=== PATIENT | female | born 1990 | race Caucasian/White ===

== ENCOUNTER 2016-11-19 20:32 | Observation (INO) | payer MEDICAID ==
[~2016-11-19] VITALS: Ht 157.5 cm; Wt 83.9 kg
[2016-11-19] MEDS ORDERED: PREN-88 PO (21:17)
== END 2016-11-19 21:20 | disposition home or self-care (01) ==
LOC: L&D 20:32 → INTOOBSV 20:32
PROVIDERS: ADMIT Specialist; ATTEND Specialist
DX: O26.893 Other specified pregnancy related conditions, third trimester (principal); R10.9 Unspecified abdominal pain; Z3A.28 28 weeks gestation of pregnancy
CPT/HCPCS: 82962; 99281; G0378

== ENCOUNTER 2018-04-09 21:57 | Emergency (ER) | payer MEDICAID ==
[~2018-04-09] VITALS: Ht 157.5 cm; Wt 68.0 kg
[~2018-04-09 21:57] MED LIST: PREN-88 PO
[2018-04-09 22:15] VITALS: BP 131/87
== END 2018-04-09 22:36 | disposition left against medical advice (07) ==
LOC: ER 21:57
DX: F10.129 Alcohol abuse with intoxication, unspecified (principal); Z53.21 Procedure and treatment not carried out due to patient leaving prior to being seen by health care provider

== ENCOUNTER 2018-04-13 15:31 | Emergency (ER) | payer MEDICAID ==
[~2018-04-13] VITALS: Ht 157.5 cm; Wt 73.0 kg
[2018-04-13] MEDS ORDERED: LORAZEPAM 1MG TABLET PO ONE (23:00)
[2018-04-13 23:10] VITALS: BP 130/83
== END 2018-04-13 23:46 | disposition home or self-care (01) ==
LOC: ER 15:31
DX: F41.9 Anxiety disorder, unspecified (principal); F15.10 Other stimulant abuse, uncomplicated; E11.9 Type 2 diabetes mellitus without complications; R00.0 Tachycardia, unspecified; Z88.5 Allergy status to narcotic agent; Z88.3 Allergy status to other anti-infective agents; Z91.041 Radiographic dye allergy status
CPT/HCPCS: 82962; 93005; 99284; Z7610; 99283

== ENCOUNTER 2018-05-05 19:37 | Emergency (ER) | payer MEDICAID ==
[~2018-05-05] VITALS: Ht 157.5 cm; Wt 73.0 kg
[2018-05-05] MEDS ORDERED: LORAZEPAM 2MG/ML CPJ IM STA (20:04)
[2018-05-05] MEDS ORDERED: SODIUM CHLORIDE 0.9% 1,000 ML IV ONE (20:04)
[2018-05-05] MEDS ORDERED: OLANZAPINE 10 MG/VIAL IM ONE (20:15)
[2018-05-06 00:35] VITALS: BP 87/47
== END 2018-05-06 02:34 | disposition home or self-care (01) ==
LOC: ER 19:37
DX: F15.10 Other stimulant abuse, uncomplicated (principal); E11.9 Type 2 diabetes mellitus without complications; Z88.5 Allergy status to narcotic agent; Z88.3 Allergy status to other anti-infective agents; Z91.041 Radiographic dye allergy status
CPT/HCPCS: 82962; 96360; 96372; 99283; J2060; J3490; J7030

== ENCOUNTER 2018-05-06 17:42 | Emergency (ER) | payer MEDICAID ==
[~2018-05-06] VITALS: Ht 162.6 cm; Wt 70.0 kg
[2018-05-06] MEDS ORDERED: SODIUM CHLORIDE 0.9% 1,000 ML IV ONE (18:07)
[2018-05-06] MEDS ORDERED: LORAZEPAM 2MG/ML CPJ IV ONE (18:15)
[2018-05-06 18:47] LABS: BASOPHILS % 0.6 % (0.0-2.0); EOSINOPHILS % 3.9 % (0.0-5.0); HEMATOCRIT. 40.6 % (36.0-48.0); HEMOGLOBIN. 13.5 g/dL (12.0-16.0); LYMPHOCYTES % 31.5 % (20.0-50.0); MEAN CORPUSCULAR HEMOGLOBIN 32.6 pg (28.0-32.0); MEAN CORPUSCULAR VOLUME 98.1 fL (81.0-99.0); MEAN PLATELET VOLUME 9.5 fl (7.4-10.4); MONOCYTES % 5.4 % (2.0-8.0); NEUTROPHILS % 58.6 % (40.0-76.0); PLATELET 295 x1000/uL (130-400); RED BLOOD CELL COUNT 4.14 mill/uL (4.2-5.4); RED CELL DISTRIBUTION WIDTH 13.6 % (11.6-14.6)
[2018-05-06 18:57] LABS: CHLORIDE 102 mEq/L (98-107)
[2018-05-06 19:06] LABS: ETHANOL BLOOD < 10 mg/dL
[2018-05-06] MEDS ORDERED: SODIUM CHLORIDE 0.9% 500 ML IV ONE (19:58)
[2018-05-06 20:33] LABS: CLARITY URINE CLOUDY (CLEAR); COLOR URINE YELLOW (YELLOW); KETONES URINE 4+ (NEGATIVE); LEUKOCYTE ESTERASE URINE NEGATIVE (NEGATIVE); NITRITE URINE NEGATIVE (NEGATIVE); OCCULT BLOOD URINE NEGATIVE (NEGATIVE); PH URINE 5.5 (4.5-8.0); PROTEIN URINE 1+ (NEGATIVE); SPECIFIC GRAVITY URINE 1.037 (1.005-1.030); UROBILINOGEN URINE 0.2 E.U./dL (0.2-1.0)
[2018-05-06 20:48] LABS: *BARBITURATES SCREEN URINE NEGATIVE (NEGATIVE); *BENZODIAZEPINES SCREEN URINE NEGATIVE (NEGATIVE)
[2018-05-06 20:49] LABS: *COCAINE SCREEN URINE NEGATIVE (NEGATIVE); CANNABINOID URINE SCREEN NEGATIVE (NEGATIVE); METHADONE URINE SCREEN NEGATIVE (NEGATIVE); OPIATES URINE SCREEN NEGATIVE (NEGATIVE); PHENCYCLIDINE URINE SCREEN NEGATIVE (NEGATIVE)
[2018-05-06 20:53] LABS: *AMPHETAMINES SCREEN URINE PRESUMTIVE POSITIVE (NEGATIVE)
[2018-05-06 21:48] VITALS: BP 103/61
== END 2018-05-06 21:52 | disposition home or self-care (01) ==
LOC: ER 17:42
DX: E11.65 Type 2 diabetes mellitus with hyperglycemia (principal); F15.10 Other stimulant abuse, uncomplicated; F16.10 Hallucinogen abuse, uncomplicated; E86.0 Dehydration; Z91.041 Radiographic dye allergy status; Z79.4 Long term (current) use of insulin; Z88.5 Allergy status to narcotic agent; Z88.3 Allergy status to other anti-infective agents
CPT/HCPCS: 36415; 80053; 80305; 81003; 81025; 82962; 85025; 87186; 96361; 96374; 99283; J2060; J7030; J7040

== ENCOUNTER 2018-05-12 23:06 | Emergency (ER) | payer MEDICAID ==
[~2018-05-12] VITALS: Ht 170.2 cm; Wt 75.0 kg
[2018-05-13] MEDS ORDERED: QUETIAPINE FUMARATE 25MG TABLET PO SCH (02:00)
[2018-05-13] MEDS ORDERED: SODIUM CHLORIDE 0.9% 1,000 ML IV ONE ×2 (02:45→03:15)
[2018-05-13 03:02] LABS: BASOPHILS % 0.4 % (0.0-2.0); EOSINOPHILS % 0.1 % (0.0-5.0); HEMATOCRIT. 38.2 % (36.0-48.0); HEMOGLOBIN. 12.5 g/dL (12.0-16.0); LYMPHOCYTES % 28.6 % (20.0-50.0); MEAN CORPUSCULAR HEMOGLOBIN 32.3 pg (28.0-32.0); MEAN CORPUSCULAR VOLUME 98.8 fL (81.0-99.0); MEAN PLATELET VOLUME 9.2 fl (7.4-10.4); MONOCYTES % 6.3 % (2.0-8.0); NEUTROPHILS % 64.6 % (40.0-76.0); PLATELET 328 x1000/uL (130-400); RED BLOOD CELL COUNT 3.87 mill/uL (4.2-5.4); RED CELL DISTRIBUTION WIDTH 13.6 % (11.6-14.6)
[2018-05-13 03:03] LABS: CHLORIDE 96 mEq/L (98-107)
[2018-05-13 03:04] LABS: HCG SCREEN NEGATIVE
[2018-05-13 03:09] LABS: ETHANOL BLOOD < 10 mg/dL
[2018-05-13 03:15] LABS: CLARITY URINE CLEAR (CLEAR); COLOR URINE YELLOW (YELLOW); KETONES URINE 2+ (NEGATIVE); LEUKOCYTE ESTERASE URINE NEGATIVE (NEGATIVE); NITRITE URINE NEGATIVE (NEGATIVE); OCCULT BLOOD URINE TRACE (NEGATIVE); PROTEIN URINE 1+ (NEGATIVE); SPECIFIC GRAVITY URINE 1.033 (1.005-1.030); UROBILINOGEN URINE 0.2 E.U./dL (0.2-1.0)
[2018-05-13 03:41] LABS: *BARBITURATES SCREEN URINE NEGATIVE (NEGATIVE); *BENZODIAZEPINES SCREEN URINE NEGATIVE (NEGATIVE); *COCAINE SCREEN URINE NEGATIVE (NEGATIVE); METHADONE URINE SCREEN NEGATIVE (NEGATIVE); OPIATES URINE SCREEN NEGATIVE (NEGATIVE)
[2018-05-13 03:42] LABS: *AMPHETAMINES SCREEN URINE PRESUMTIVE POSITIVE (NEGATIVE); CANNABINOID URINE SCREEN NEGATIVE (NEGATIVE); PHENCYCLIDINE URINE SCREEN NEGATIVE (NEGATIVE)
[2018-05-13] MEDS ORDERED: LORAZEPAM 1MG TABLET PO ONE (03:45)
[2018-05-13] MEDS ORDERED: INSULIN REGULAR (HUMULIN R) 300UNITS/3ML SUBCUT ONE (04:15)
[2018-05-13 06:53] VITALS: BP 128/79
== END 2018-05-13 06:54 | disposition home or self-care (01) ==
LOC: ER 23:06
DX: F15.10 Other stimulant abuse, uncomplicated (principal); E11.65 Type 2 diabetes mellitus with hyperglycemia; F41.9 Anxiety disorder, unspecified; F20.9 Schizophrenia, unspecified; Z88.3 Allergy status to other anti-infective agents; Z91.041 Radiographic dye allergy status
CPT/HCPCS: 36415; 80048; 80305; 80307; 80329; 81003; 81025; 82962; 84703; 85025; 93005; 96361; 96372; 99284; J1815; J7030

== ENCOUNTER 2018-06-14 00:54 | Emergency (ER) | payer MEDICAID ==
[~2018-06-14] VITALS: Ht 154.9 cm; Wt 63.0 kg
[2018-06-14] MEDS ORDERED: LORAZEPAM 1MG TABLET PO ONE (06:45)
[2018-06-14] MEDS ORDERED: SODIUM CHLORIDE 0.9% 1,000 ML IV ONE (06:45)
[2018-06-14 07:06] LABS: BASOPHILS % 0.6 % (0.0-2.0); EOSINOPHILS % 2.9 % (0.0-5.0); HEMATOCRIT. 36.7 % (36.0-48.0); HEMOGLOBIN. 12.4 g/dL (12.0-16.0); LYMPHOCYTES % 31.7 % (20.0-50.0); MEAN CORPUSCULAR HEMOGLOBIN 32.2 pg (28.0-32.0); MEAN CORPUSCULAR VOLUME 95.5 fL (81.0-99.0); MEAN PLATELET VOLUME 8.9 fl (7.4-10.4); MONOCYTES % 5.4 % (2.0-8.0); NEUTROPHILS % 59.4 % (40.0-76.0); PLATELET 304 x1000/uL (130-400); RED BLOOD CELL COUNT 3.84 mill/uL (4.2-5.4); RED CELL DISTRIBUTION WIDTH 13.4 % (11.6-14.6)
[2018-06-14 07:08] LABS: CHLORIDE 104 mEq/L (98-107)
[2018-06-14 07:12] LABS: ETHANOL BLOOD < 10 mg/dL
[2018-06-14 07:17] LABS: HCG SCREEN NEGATIVE
[2018-06-14 08:09] LABS: CLARITY URINE CLEAR (CLEAR); COLOR URINE YELLOW (YELLOW); KETONES URINE NEGATIVE (NEGATIVE); LEUKOCYTE ESTERASE URINE NEGATIVE (NEGATIVE); NITRITE URINE NEGATIVE (NEGATIVE); OCCULT BLOOD URINE NEGATIVE (NEGATIVE); PROTEIN URINE NEGATIVE (NEGATIVE); SPECIFIC GRAVITY URINE 1.038 (1.005-1.030); UROBILINOGEN URINE 0.2 E.U./dL (0.2-1.0)
[2018-06-14] MEDS ORDERED: INSULIN LISPRO 100 UNITS/ML SUBCUT ONE (08:15)
[2018-06-14 08:30] LABS: *BARBITURATES SCREEN URINE NEGATIVE (NEGATIVE); *BENZODIAZEPINES SCREEN URINE NEGATIVE (NEGATIVE)
[2018-06-14 08:31] LABS: *AMPHETAMINES SCREEN URINE PRESUMTIVE POSITIVE (NEGATIVE); *COCAINE SCREEN URINE NEGATIVE (NEGATIVE); CANNABINOID URINE SCREEN NEGATIVE (NEGATIVE); METHADONE URINE SCREEN NEGATIVE (NEGATIVE); OPIATES URINE SCREEN NEGATIVE (NEGATIVE); PHENCYCLIDINE URINE SCREEN NEGATIVE (NEGATIVE)
[2018-06-14 09:50] VITALS: BP 118/86
== END 2018-06-14 09:59 | disposition home or self-care (01) ==
LOC: ER 00:54
DX: F41.9 Anxiety disorder, unspecified (principal); E11.65 Type 2 diabetes mellitus with hyperglycemia; F15.10 Other stimulant abuse, uncomplicated; Z60.2 Problems related to living alone; Z88.5 Allergy status to narcotic agent; Z88.3 Allergy status to other anti-infective agents; Z91.041 Radiographic dye allergy status
CPT/HCPCS: 36415; 80053; 80305; 80307; 80320; 80329; 81003; 81025; 82962; 84703; 85025; 96372; 99284; J1815; J7030; G0480

== ENCOUNTER 2018-06-28 19:14 | Emergency (ER) | payer MEDICAID ==
[~2018-06-28] VITALS: Ht 162.6 cm; Wt 73.0 kg
[2018-06-28] MEDS ORDERED: SODIUM CHLORIDE 0.9% 1,000 ML IV ONE (19:54)
[2018-06-28] MEDS ORDERED: LORAZEPAM 2MG/ML CPJ IM PRN (20:00)
[2018-06-28] MEDS ORDERED: HALOPERIDOL LACTATE 5MG/ML VIAL IM ONE (20:00)
[2018-06-28 20:45] LABS: CLARITY URINE CLEAR (CLEAR); COLOR URINE YELLOW (YELLOW); KETONES URINE NEGATIVE (NEGATIVE); LEUKOCYTE ESTERASE URINE NEGATIVE (NEGATIVE); NITRITE URINE NEGATIVE (NEGATIVE); OCCULT BLOOD URINE NEGATIVE (NEGATIVE); PROTEIN URINE NEGATIVE (NEGATIVE); SPECIFIC GRAVITY URINE 1.007 (1.005-1.030); UROBILINOGEN URINE 0.2 E.U./dL (0.2-1.0)
[2018-06-28 20:56] LABS: BASOPHILS % 0.7 % (0.0-2.0); EOSINOPHILS % 2.4 % (0.0-5.0); HEMATOCRIT. 34.9 % (36.0-48.0); HEMOGLOBIN. 11.9 g/dL (12.0-16.0); LYMPHOCYTES % 36.7 % (20.0-50.0); MEAN CORPUSCULAR VOLUME 93.9 fL (81.0-99.0); MEAN PLATELET VOLUME 8.7 fl (7.4-10.4); MONOCYTES % 5.8 % (2.0-8.0); NEUTROPHILS % 54.4 % (40.0-76.0); PLATELET 314 x1000/uL (130-400); RED BLOOD CELL COUNT 3.72 mill/uL (4.2-5.4); RED CELL DISTRIBUTION WIDTH 13.7 % (11.6-14.6)
[2018-06-28 20:57] LABS: *BARBITURATES SCREEN URINE NEGATIVE (NEGATIVE); *BENZODIAZEPINES SCREEN URINE NEGATIVE (NEGATIVE); *COCAINE SCREEN URINE NEGATIVE (NEGATIVE); CANNABINOID URINE SCREEN NEGATIVE (NEGATIVE); METHADONE URINE SCREEN NEGATIVE (NEGATIVE); OPIATES URINE SCREEN NEGATIVE (NEGATIVE); PHENCYCLIDINE URINE SCREEN NEGATIVE (NEGATIVE)
[2018-06-28 21:03] LABS: CHLORIDE 103 mEq/L (98-107)
[2018-06-28 21:08] LABS: ETHANOL BLOOD < 10 mg/dL
[2018-06-28 21:08] LABS: *AMPHETAMINES SCREEN URINE PRESUMTIVE POSITIVE (NEGATIVE)
[2018-06-28 21:17] LABS: HCG SCREEN NEGATIVE
[2018-06-29 02:20] VITALS: BP 90/51
== END 2018-06-29 03:56 | disposition home or self-care (01) ==
LOC: ER 19:14
DX: F23 Brief psychotic disorder (principal); F15.229 Other stimulant dependence with intoxication, unspecified; F41.9 Anxiety disorder, unspecified; E11.9 Type 2 diabetes mellitus without complications; E03.9 Hypothyroidism, unspecified; Z88.5 Allergy status to narcotic agent; Z88.3 Allergy status to other anti-infective agents; Z91.041 Radiographic dye allergy status; Z98.890 Other specified postprocedural states
CPT/HCPCS: 36415; 70450; 71045; 80053; 80305; 80307; 80320; 80329; 81003; 81025; 82962; 84443; 84703; 85025; 93005; 96372; 99284; J1630; J2060; J7030; Z7610; G0480

== ENCOUNTER 2018-07-11 05:51 | Emergency (ER) | payer MEDICAID ==
[~2018-07-11] VITALS: Ht 157.5 cm; Wt 67.0 kg
[2018-07-11] MEDS ORDERED: LORAZEPAM 2MG/ML CPJ IM ONE (06:30)
[2018-07-11 07:59] VITALS: BP 121/91
== END 2018-07-11 07:59 | disposition home or self-care (01) ==
LOC: ER 05:51
DX: F41.9 Anxiety disorder, unspecified (principal); E11.9 Type 2 diabetes mellitus without complications; F15.10 Other stimulant abuse, uncomplicated; Z98.890 Other specified postprocedural states; Z88.8 Allergy status to other drugs, medicaments and biological substances; Z91.041 Radiographic dye allergy status; Z88.1 Allergy status to other antibiotic agents
CPT/HCPCS: 81025; 93005; 96372; 99284; J2060; Z7610

== ENCOUNTER 2018-08-29 01:56 | Emergency (ER) | payer MEDICAID ==
[~2018-08-29] VITALS: Ht 162.6 cm; Wt 59.0 kg
[2018-08-29] MEDS ORDERED: LORAZEPAM 1MG TABLET PO ONE (05:45)
[2018-08-29] MEDS ORDERED: SODIUM CHLORIDE 0.9% 1,000 ML IV ONE (07:51)
[2018-08-29] MEDS ORDERED: ASPIRIN 81MG TABLET PO ONE (08:00)
[2018-08-29 08:39] LABS: BASOPHILS % 0.8 % (0.0-2.0); EOSINOPHILS % 0.9 % (0.0-5.0); HEMATOCRIT. 40.1 % (36.0-48.0); HEMOGLOBIN. 13.4 g/dL (12.0-16.0); LYMPHOCYTES % 25.9 % (20.0-50.0); MEAN CORPUSCULAR VOLUME 92.5 fL (81.0-99.0); MONOCYTES % 5.6 % (2.0-8.0); NEUTROPHILS % 66.8 % (40.0-76.0); PLATELET 367 x1000/uL (130-400); RED BLOOD CELL COUNT 4.34 mill/uL (4.2-5.4); RED CELL DISTRIBUTION WIDTH 14.2 % (11.6-14.6)
[2018-08-29 08:43] LABS: CHLORIDE 92 mEq/L (98-107)
[2018-08-29 08:44] LABS: PROTHROMBIN TIME 9.8 sec (9.6-11.0)
[2018-08-29] MEDS ORDERED: LORAZEPAM 2MG/ML CPJ IV ONE (08:45)
[2018-08-29 08:49] LABS: ETHANOL BLOOD < 10 mg/dL
[2018-08-29 08:55] LABS: HCG SCREEN NEGATIVE
[2018-08-29] MEDS ORDERED: INSULIN REGULAR (HUMULIN R) 300UNITS/3ML IV NR (11:15)
[2018-08-29 11:23] VITALS: BP 114/69
[2018-08-29 12:34] LABS: *BENZODIAZEPINES SCREEN URINE NEGATIVE (NEGATIVE)
[2018-08-29 12:35] LABS: *COCAINE SCREEN URINE NEGATIVE (NEGATIVE); CANNABINOID URINE SCREEN NEGATIVE (NEGATIVE); METHADONE URINE SCREEN NEGATIVE (NEGATIVE); OPIATES URINE SCREEN NEGATIVE (NEGATIVE); PHENCYCLIDINE URINE SCREEN NEGATIVE (NEGATIVE)
[2018-08-29 12:37] LABS: *BARBITURATES SCREEN URINE NEGATIVE (NEGATIVE)
[2018-08-29 12:38] LABS: *AMPHETAMINES SCREEN URINE PRESUMTIVE POSITIVE (NEGATIVE)
== END 2018-08-29 12:42 | disposition home or self-care (01) ==
LOC: ER 01:56
DX: F41.9 Anxiety disorder, unspecified (principal); E11.65 Type 2 diabetes mellitus with hyperglycemia; F15.10 Other stimulant abuse, uncomplicated; F17.200 Nicotine dependence, unspecified, uncomplicated; Z98.890 Other specified postprocedural states; Z88.1 Allergy status to other antibiotic agents; Z88.5 Allergy status to narcotic agent; Z91.041 Radiographic dye allergy status
CPT/HCPCS: 36415; 71045; 80053; 80305; 80320; 81025; 82962; 83690; 83880; 84484; 84703; 85025; 85610; 93005; 96361; 96374; 96375; 99284; J1815; J2060; J7030; G0480

== ENCOUNTER 2018-08-29 22:41 | Emergency (ER) | payer MEDICAID ==
[~2018-08-29] VITALS: Ht 154.9 cm; Wt 59.0 kg
[2018-08-29 23:55] VITALS: BP 139/74
== END 2018-08-30 00:05 | disposition left against medical advice (07) ==
LOC: ER 22:41
DX: Z53.21 Procedure and treatment not carried out due to patient leaving prior to being seen by health care provider (principal)
CPT/HCPCS: 93005

== ENCOUNTER 2018-09-12 02:29 | Emergency (ER) | payer MEDICAID ==
[~2018-09-12] VITALS: Ht 167.6 cm; Wt 60.0 kg
[2018-09-12] MEDS ORDERED: SODIUM CHLORIDE 0.9% 1,000 ML IV ONE (04:39)
[2018-09-12] MEDS ORDERED: ACETAMINOPHEN 325MG TABLET PO STA (04:39)
[2018-09-12] MEDS ORDERED: LORAZEPAM 2MG/ML CPJ IV ONE (04:45)
[2018-09-12 04:58] LABS: BASOPHILS % 0.5 % (0.0-2.0); EOSINOPHILS % 3.1 % (0.0-5.0); HEMATOCRIT. 33.6 % (36.0-48.0); HEMOGLOBIN. 11.3 g/dL (12.0-16.0); LYMPHOCYTES % 32.4 % (20.0-50.0); MEAN CORPUSCULAR HEMOGLOBIN 30.3 pg (28.0-32.0); MEAN CORPUSCULAR VOLUME 90.5 fL (81.0-99.0); MEAN PLATELET VOLUME 7.9 fl (7.4-10.4); MONOCYTES % 7.6 % (2.0-8.0); NEUTROPHILS % 56.4 % (40.0-76.0); PLATELET 345 x1000/uL (130-400); RED BLOOD CELL COUNT 3.72 mill/uL (4.2-5.4); RED CELL DISTRIBUTION WIDTH 14.6 % (11.6-14.6)
[2018-09-12 05:05] LABS: CHLORIDE 109 mEq/L (98-107)
[2018-09-12 05:08] LABS: ETHANOL BLOOD < 10 mg/dL
[2018-09-12 07:54] LABS: CLARITY URINE CLOUDY (CLEAR); COLOR URINE YELLOW (YELLOW); KETONES URINE 1+ (NEGATIVE); LEUKOCYTE ESTERASE URINE 1+ (NEGATIVE); NITRITE URINE NEGATIVE (NEGATIVE); OCCULT BLOOD URINE NEGATIVE (NEGATIVE); PH URINE 5.5 (4.5-8.0); PROTEIN URINE 3+ (NEGATIVE); SPECIFIC GRAVITY URINE 1.035 (1.005-1.030)
[2018-09-12 08:21] LABS: *COCAINE SCREEN URINE NEGATIVE (NEGATIVE); METHADONE URINE SCREEN NEGATIVE (NEGATIVE); OPIATES URINE SCREEN NEGATIVE (NEGATIVE); PHENCYCLIDINE URINE SCREEN NEGATIVE (NEGATIVE)
[2018-09-12 08:22] LABS: *BARBITURATES SCREEN URINE NEGATIVE (NEGATIVE); *BENZODIAZEPINES SCREEN URINE NEGATIVE (NEGATIVE); CANNABINOID URINE SCREEN NEGATIVE (NEGATIVE)
[2018-09-12 08:23] LABS: *AMPHETAMINES SCREEN URINE PRESUMTIVE POSITIVE (NEGATIVE)
[2018-09-12 13:22] VITALS: BP 103/72
== END 2018-09-12 14:04 | disposition home or self-care (01) ==
LOC: ER 02:29
DX: R07.9 Chest pain, unspecified (principal); F15.10 Other stimulant abuse, uncomplicated; R45.851 Suicidal ideations; F41.9 Anxiety disorder, unspecified; E11.9 Type 2 diabetes mellitus without complications; Z88.8 Allergy status to other drugs, medicaments and biological substances; Z88.5 Allergy status to narcotic agent; Z88.1 Allergy status to other antibiotic agents; Z79.899 Other long term (current) drug therapy; Z98.890 Other specified postprocedural states
CPT/HCPCS: 36415; 71045; 80053; 80305; 80320; 81003; 84484; 85025; 93005; 96374; 99284; J2060; J7030; Z7610; G0480

== ENCOUNTER 2018-09-29 13:55 | Emergency (ER) | payer MEDICAID ==
[~2018-09-29] VITALS: Ht 157.5 cm; Wt 66.0 kg
[2018-09-29 19:12] LABS: BASOPHILS % 0.7 % (0.0-2.0); EOSINOPHILS % 2.2 % (0.0-5.0); HEMATOCRIT. 34.7 % (36.0-48.0); HEMOGLOBIN. 11.5 g/dL (12.0-16.0); LYMPHOCYTES % 39.5 % (20.0-50.0); MEAN CORPUSCULAR HEMOGLOBIN 29.6 pg (28.0-32.0); MEAN CORPUSCULAR VOLUME 89.2 fL (81.0-99.0); MEAN PLATELET VOLUME 8.1 fl (7.4-10.4); NEUTROPHILS % 50.6 % (40.0-76.0); PLATELET 370 x1000/uL (130-400); RED BLOOD CELL COUNT 3.89 mill/uL (4.2-5.4); RED CELL DISTRIBUTION WIDTH 15.2 % (11.6-14.6)
[2018-09-29 19:17] LABS: CHLORIDE 100 mEq/L (98-107)
[2018-09-29 19:21] LABS: ETHANOL BLOOD < 10 mg/dL
[2018-09-29 20:10] LABS: *BARBITURATES SCREEN URINE NEGATIVE (NEGATIVE); *BENZODIAZEPINES SCREEN URINE NEGATIVE (NEGATIVE); *COCAINE SCREEN URINE NEGATIVE (NEGATIVE); CANNABINOID URINE SCREEN NEGATIVE (NEGATIVE); METHADONE URINE SCREEN NEGATIVE (NEGATIVE); OPIATES URINE SCREEN NEGATIVE (NEGATIVE); PHENCYCLIDINE URINE SCREEN NEGATIVE (NEGATIVE)
[2018-09-29 20:47] LABS: *AMPHETAMINES SCREEN URINE PRESUMTIVE POSITIVE (NEGATIVE)
[2018-09-29] MEDS ORDERED: DEXTROSE 10% WATER 500 ML IV ONE (21:00)
[2018-09-29] MEDS ORDERED: SODIUM CHLORIDE 0.9% 1,000 ML IV ONE (21:00)
[2018-09-29] MEDS ORDERED: DEXTROSE 50% WATER 50ML SYRINGE IV ONE (21:00)
[2018-09-29] MEDS ORDERED: LORAZEPAM 2MG/ML CPJ IV NR (21:00)
[2018-09-29] MEDS ORDERED: SODIUM CHLORIDE 0.9% 1,000 ML IV NR (22:30)
[2018-09-29] MEDS ORDERED: INSULIN REGULAR (HUMULIN R) 300UNITS/3ML IV NR (22:30)
[2018-09-30] MEDS ORDERED: INSULIN REGULAR (HUMULIN R) UD 100 UNITS/ML SYR IV ONE ×2 (01:15→03:15)
[2018-09-30] MEDS ORDERED: SODIUM CHLORIDE 0.9% 1,000 ML IV ONE (01:15)
[2018-09-30] MEDS ORDERED: INSULIN REGULAR (HUMULIN R) 300UNITS/3ML IV NR ×3 (02:15→03:45)
[2018-09-30 04:47] VITALS: BP 107/82
== END 2018-09-30 05:22 | disposition home or self-care (01) ==
LOC: ER 13:55
DX: F19.10 Other psychoactive substance abuse, uncomplicated (principal); E11.65 Type 2 diabetes mellitus with hyperglycemia; F41.9 Anxiety disorder, unspecified; Z98.890 Other specified postprocedural states; F15.10 Other stimulant abuse, uncomplicated; Z88.2 Allergy status to sulfonamides; Z91.041 Radiographic dye allergy status; Z88.6 Allergy status to analgesic agent; Z88.1 Allergy status to other antibiotic agents
CPT/HCPCS: 36415; 71045; 80048; 80305; 80307; 80320; 80329; 81025; 82962; 85025; 96361; 96374; 96375; 96376; 99291; J1815; J2060; J7030; Z7610; G0480

== ENCOUNTER 2018-09-30 14:46 | Emergency (ER) | payer MEDICAID ==
[~2018-09-30] VITALS: Ht 162.6 cm; Wt 63.0 kg
[2018-09-30 14:49] VITALS: BP 180/100
[2018-09-30] MEDS ORDERED: LORAZEPAM 2MG/ML CPJ IM STA (16:07)
[2018-09-30] MEDS ORDERED: HALOPERIDOL LACTATE 5MG/ML VIAL IM STA (16:07)
[2018-09-30] MEDS ORDERED: SODIUM CHLORIDE 0.9% 1,000 ML IV ONE (16:15)
[2018-09-30 16:57] LABS: BASOPHILS % 0.6 % (0.0-2.0); EOSINOPHILS % 4.6 % (0.0-5.0); HEMATOCRIT. 32.3 % (36.0-48.0); HEMOGLOBIN. 10.8 g/dL (12.0-16.0); LYMPHOCYTES % 40.4 % (20.0-50.0); MEAN CORPUSCULAR HEMOGLOBIN 30.2 pg (28.0-32.0); MEAN CORPUSCULAR VOLUME 89.9 fL (81.0-99.0); MEAN PLATELET VOLUME 8.3 fl (7.4-10.4); MONOCYTES % 4.9 % (2.0-8.0); NEUTROPHILS % 49.5 % (40.0-76.0); PLATELET 343 x1000/uL (130-400); RED BLOOD CELL COUNT 3.59 mill/uL (4.2-5.4); RED CELL DISTRIBUTION WIDTH 15.3 % (11.6-14.6)
[2018-09-30 16:58] LABS: CHLORIDE 106 mEq/L (98-107)
[2018-09-30 17:03] LABS: ETHANOL BLOOD < 10 mg/dL
[2018-09-30 17:12] LABS: HCG SCREEN NEGATIVE
[2018-09-30] MEDS ORDERED: DIPHENHYDRAMINE 25MG CAPSULE PO ONE (17:30)
[2018-09-30 17:55] LABS: CLARITY URINE CLOUDY (CLEAR); COLOR URINE YELLOW (YELLOW); KETONES URINE 2+ (NEGATIVE); LEUKOCYTE ESTERASE URINE 2+ (NEGATIVE); NITRITE URINE NEGATIVE (NEGATIVE); OCCULT BLOOD URINE TRACE (NEGATIVE); PH URINE 5.5 (4.5-8.0); PROTEIN URINE TRACE (NEGATIVE); SPECIFIC GRAVITY URINE 1.032 (1.005-1.030); UROBILINOGEN URINE 0.2 E.U./dL (0.2-1.0)
[2018-09-30 18:01] LABS: *BARBITURATES SCREEN URINE NEGATIVE (NEGATIVE); *COCAINE SCREEN URINE NEGATIVE (NEGATIVE)
[2018-09-30 18:02] LABS: *BENZODIAZEPINES SCREEN URINE NEGATIVE (NEGATIVE); CANNABINOID URINE SCREEN NEGATIVE (NEGATIVE); METHADONE URINE SCREEN NEGATIVE (NEGATIVE); OPIATES URINE SCREEN NEGATIVE (NEGATIVE); PHENCYCLIDINE URINE SCREEN NEGATIVE (NEGATIVE)
[2018-09-30 18:15] LABS: *AMPHETAMINES SCREEN URINE PRESUMTIVE POSITIVE (NEGATIVE)
[2018-09-30] MEDS ORDERED: INSULIN REGULAR (HUMULIN R) 300UNITS/3ML SUBCUT ONE (18:45)
== END 2018-09-30 19:20 | disposition home or self-care (01) ==
LOC: ER 14:49
DX: T43.621A Poisoning by amphetamines, accidental (unintentional), initial encounter (principal); Y92.89 Other specified places as the place of occurrence of the external cause; E11.65 Type 2 diabetes mellitus with hyperglycemia; N30.90 Cystitis, unspecified without hematuria; F41.9 Anxiety disorder, unspecified; Z98.890 Other specified postprocedural states; Z88.2 Allergy status to sulfonamides; Z91.041 Radiographic dye allergy status; Z88.6 Allergy status to analgesic agent; Z88.1 Allergy status to other antibiotic agents
CPT/HCPCS: 36415; 80053; 80305; 80307; 80320; 80329; 81003; 84703; 85025; 87077; 87086; 87186; 96372; 99283; J1630; J1815; J2060; J7030; Q0163; G0480

== ENCOUNTER 2018-10-06 16:53 | Emergency (ER) | payer MEDICAID ==
[~2018-10-06] VITALS: Ht 157.5 cm; Wt 63.0 kg
[2018-10-06] MEDS ORDERED: SODIUM CHLORIDE 0.9% 1,000 ML IV ONE ×2 (17:39→18:54)
[2018-10-06] MEDS ORDERED: LORAZEPAM 2MG/ML CPJ IV ONE (17:45)
[2018-10-06] MEDS ORDERED: ONDANSETRON HCL 4MG/2ML INJ IV ONE (17:45)
[2018-10-06 18:09] LABS: BASOPHILS % 0.6 % (0.0-2.0); EOSINOPHILS % 2.7 % (0.0-5.0); HEMATOCRIT. 36.5 % (36.0-48.0); LYMPHOCYTES % 28.2 % (20.0-50.0); MEAN CORPUSCULAR HEMOGLOBIN 30.2 pg (28.0-32.0); MEAN CORPUSCULAR VOLUME 91.7 fL (81.0-99.0); MONOCYTES % 4.6 % (2.0-8.0); NEUTROPHILS % 63.9 % (40.0-76.0); PLATELET 317 x1000/uL (130-400); RED BLOOD CELL COUNT 3.98 mill/uL (4.2-5.4); RED CELL DISTRIBUTION WIDTH 15.6 % (11.6-14.6)
[2018-10-06 18:14] LABS: CHLORIDE 94 mEq/L (98-107)
[2018-10-06 18:18] LABS: ETHANOL BLOOD < 10 mg/dL
[2018-10-06 18:21] LABS: HCG SCREEN NEGATIVE
[2018-10-06] MEDS ORDERED: INSULIN REGULAR (HUMULIN R) 300UNITS/3ML IV ONE (18:45)
[2018-10-06 20:26] LABS: *BARBITURATES SCREEN URINE NEGATIVE (NEGATIVE); *BENZODIAZEPINES SCREEN URINE NEGATIVE (NEGATIVE); *COCAINE SCREEN URINE NEGATIVE (NEGATIVE); METHADONE URINE SCREEN NEGATIVE (NEGATIVE); OPIATES URINE SCREEN NEGATIVE (NEGATIVE)
[2018-10-06 20:27] LABS: CANNABINOID URINE SCREEN NEGATIVE (NEGATIVE); PHENCYCLIDINE URINE SCREEN NEGATIVE (NEGATIVE)
[2018-10-06 20:32] LABS: *AMPHETAMINES SCREEN URINE PRESUMTIVE POSITIVE (NEGATIVE)
[2018-10-06] MEDS ORDERED: DIPHENHYDRAMINE 25MG CAPSULE PO ONE (21:30)
[2018-10-06 21:38] VITALS: BP 96/70
== END 2018-10-06 21:46 | disposition left against medical advice (07) ==
LOC: ER 17:16
DX: E11.9 Type 2 diabetes mellitus without complications (principal); F15.10 Other stimulant abuse, uncomplicated; F41.9 Anxiety disorder, unspecified; Z98.890 Other specified postprocedural states; Z88.2 Allergy status to sulfonamides; Z91.041 Radiographic dye allergy status; Z88.6 Allergy status to analgesic agent; Z88.1 Allergy status to other antibiotic agents
CPT/HCPCS: 36415; 80048; 80305; 80307; 80320; 80329; 81025; 82962; 84703; 85025; 96361; 96374; 96375; 99283; J1815; J2060; J2405; J7030; Q0163; Z7610; G0480

== ENCOUNTER 2018-10-08 12:33 | Emergency (ER) | payer MEDICAID ==
[~2018-10-08] VITALS: Ht 162.6 cm; Wt 56.0 kg
[2018-10-08] MEDS ORDERED: LORAZEPAM 2MG/ML CPJ IV ONE (15:00)
[2018-10-08] MEDS ORDERED: DIPHENHYDRAMINE 50MG/ML VIAL IV ONE (15:00)
[2018-10-08 16:04] LABS: BASOPHILS % 0.8 % (0.0-2.0); HEMOGLOBIN. 12.5 g/dL (12.0-16.0); LYMPHOCYTES % 31.1 % (20.0-50.0); MEAN CORPUSCULAR HEMOGLOBIN 29.9 pg (28.0-32.0); MEAN CORPUSCULAR VOLUME 90.9 fL (81.0-99.0); MEAN PLATELET VOLUME 9.8 fl (7.4-10.4); MONOCYTES % 4.7 % (2.0-8.0); NEUTROPHILS % 59.4 % (40.0-76.0); PLATELET 337 x1000/uL (130-400); RED BLOOD CELL COUNT 4.18 mill/uL (4.2-5.4); RED CELL DISTRIBUTION WIDTH 16.1 % (11.6-14.6)
[2018-10-08 16:09] LABS: CHLORIDE 95 mEq/L (98-107)
[2018-10-08] MEDS ORDERED: SODIUM CHLORIDE 0.9% 100 ML IV ONE (16:30)
[2018-10-08] MEDS ORDERED: LORAZEPAM 2MG/ML CPJ IM PRN (16:30)
[2018-10-08] MEDS ORDERED: INSULIN REGULAR (HUMULIN R) 300UNITS/3ML SUBCUT ONE (16:30)
[2018-10-08] MEDS ORDERED: DIPHENHYDRAMINE 50MG/ML VIAL IM ONE (17:00)
[2018-10-08 18:45] VITALS: BP 109/87
== END 2018-10-08 19:15 | disposition home or self-care (01) ==
LOC: ER 12:33
DX: F41.9 Anxiety disorder, unspecified (principal); T43.625A Adverse effect of amphetamines, initial encounter; E11.65 Type 2 diabetes mellitus with hyperglycemia; Y92.89 Other specified places as the place of occurrence of the external cause; F20.9 Schizophrenia, unspecified; Z98.890 Other specified postprocedural states; Z88.1 Allergy status to other antibiotic agents; Z88.2 Allergy status to sulfonamides; Z88.5 Allergy status to narcotic agent; Z88.6 Allergy status to analgesic agent; Z88.8 Allergy status to other drugs, medicaments and biological substances; Z79.4 Long term (current) use of insulin
CPT/HCPCS: 36415; 71045; 80053; 82962; 84484; 85025; 93005; 96372; 99284; J1200; J1815; J2060; J7050

== ENCOUNTER 2018-10-11 03:40 | Emergency (ER) | payer MEDICAID ==
[~2018-10-11] VITALS: Ht 160 cm; Wt 64.0 kg
[2018-10-11 04:44] LABS: EOSINOPHILS % 2.9 % (0.0-5.0); HEMATOCRIT. 35.9 % (36.0-48.0); HEMOGLOBIN. 11.5 g/dL (12.0-16.0); LYMPHOCYTES % 33.5 % (20.0-50.0); MEAN CORPUSCULAR HEMOGLOBIN 29.6 pg (28.0-32.0); MEAN CORPUSCULAR VOLUME 92.5 fL (81.0-99.0); MEAN PLATELET VOLUME 9.4 fl (7.4-10.4); MONOCYTES % 6.1 % (2.0-8.0); NEUTROPHILS % 56.5 % (40.0-76.0); PLATELET 282 x1000/uL (130-400); RED BLOOD CELL COUNT 3.89 mill/uL (4.2-5.4); RED CELL DISTRIBUTION WIDTH 15.9 % (11.6-14.6)
[2018-10-11 04:46] LABS: CLARITY URINE CLOUDY (CLEAR); COLOR URINE YELLOW (YELLOW); KETONES URINE TRACE (NEGATIVE); LEUKOCYTE ESTERASE URINE NEGATIVE (NEGATIVE); NITRITE URINE NEGATIVE (NEGATIVE); OCCULT BLOOD URINE TRACE (NEGATIVE); PH URINE 5.5 (4.5-8.0); PROTEIN URINE NEGATIVE (NEGATIVE); SPECIFIC GRAVITY URINE 1.035 (1.005-1.030); UROBILINOGEN URINE 0.2 E.U./dL (0.2-1.0)
[2018-10-11 04:50] LABS: CHLORIDE 94 mEq/L (98-107)
[2018-10-11 04:53] LABS: HCG SCREEN NEGATIVE
[2018-10-11 04:54] LABS: ETHANOL BLOOD < 10 mg/dL
[2018-10-11] MEDS ORDERED: LORAZEPAM 2MG/ML CPJ IM ONE (05:00)
[2018-10-11 05:01] LABS: *BARBITURATES SCREEN URINE NEGATIVE (NEGATIVE); *BENZODIAZEPINES SCREEN URINE NEGATIVE (NEGATIVE); *COCAINE SCREEN URINE NEGATIVE (NEGATIVE)
[2018-10-11 05:02] LABS: CANNABINOID URINE SCREEN NEGATIVE (NEGATIVE); METHADONE URINE SCREEN NEGATIVE (NEGATIVE); OPIATES URINE SCREEN NEGATIVE (NEGATIVE); PHENCYCLIDINE URINE SCREEN NEGATIVE (NEGATIVE)
[2018-10-11 05:06] LABS: *AMPHETAMINES SCREEN URINE PRESUMTIVE POSITIVE (NEGATIVE)
[2018-10-11] MEDS ORDERED: SODIUM CHLORIDE 0.9% 1,000 ML IV ONE ×2 (05:08→09:45)
[2018-10-11] MEDS ORDERED: INSULIN REGULAR (HUMULIN R) 300UNITS/3ML SUBCUT ONE (05:45)
[2018-10-11] MEDS ORDERED: LORAZEPAM 2MG/ML CPJ IV ONE (06:00)
[2018-10-11] MEDS ORDERED: DIPHENHYDRAMINE 50MG/ML VIAL IV ONE (07:15)
[2018-10-11] MEDS ORDERED: BACITRACIN ZINC OINT UDPKT TOP ONE (11:00)
[2018-10-11 11:40] VITALS: BP 104/68
== END 2018-10-11 11:11 | disposition home or self-care (01) ==
LOC: ER 03:40
DX: F15.10 Other stimulant abuse, uncomplicated (principal); E11.65 Type 2 diabetes mellitus with hyperglycemia; F41.9 Anxiety disorder, unspecified; Z88.5 Allergy status to narcotic agent; Z88.2 Allergy status to sulfonamides; Z88.6 Allergy status to analgesic agent; Z91.041 Radiographic dye allergy status; Z91.14 Patient's other noncompliance with medication regimen
CPT/HCPCS: 36415; 80048; 80305; 80320; 81003; 82010; 82962; 84703; 85025; 96361; 96372; 96374; 96375; 99283; J1200; J1815; J2060; J7030; Z7610; G0480

== ENCOUNTER 2018-10-20 20:12 | Emergency (ER) | payer MEDICAID ==
[~2018-10-20] VITALS: Ht 157.5 cm; Wt 64.0 kg
[2018-10-20] MEDS: LORAZEPAM 2MG/ML CPJ IM PRN ×2 (21:21→22:56)
[2018-10-20 21:49] LABS: BASOPHILS % 0.7 % (0.0-2.0); EOSINOPHILS % 2.2 % (0.0-5.0); HEMOGLOBIN. 11.5 g/dL (12.0-16.0); LYMPHOCYTES % 39.1 % (20.0-50.0); MEAN CORPUSCULAR HEMOGLOBIN 29.5 pg (28.0-32.0); MEAN CORPUSCULAR VOLUME 90.2 fL (81.0-99.0); MEAN PLATELET VOLUME 8.3 fl (7.4-10.4); MONOCYTES % 4.6 % (2.0-8.0); NEUTROPHILS % 53.4 % (40.0-76.0); PLATELET 299 x1000/uL (130-400); RED BLOOD CELL COUNT 3.88 mill/uL (4.2-5.4); RED CELL DISTRIBUTION WIDTH 16.1 % (11.6-14.6)
[2018-10-20 21:52] LABS: CHLORIDE 97 mEq/L (98-107)
[2018-10-20] MEDS ORDERED: OLANZAPINE 10 MG/VIAL IM ONE (22:15)
[2018-10-21] MEDS ORDERED: INS NPH/REG HM 70-30 100 UNITS/ML 10ML VIAL (HUMULIN 70-30) SUBCUT ONE
[2018-10-21 01:36] VITALS: BP 94/59
== END 2018-10-21 01:38 | disposition home or self-care (01) ==
LOC: ER 20:12
DX: F41.9 Anxiety disorder, unspecified (principal); E11.9 Type 2 diabetes mellitus without complications; F99 Mental disorder, not otherwise specified; F17.210 Nicotine dependence, cigarettes, uncomplicated; F15.10 Other stimulant abuse, uncomplicated; Z88.2 Allergy status to sulfonamides; Z88.6 Allergy status to analgesic agent; Z88.3 Allergy status to other anti-infective agents; Z91.041 Radiographic dye allergy status; Z88.5 Allergy status to narcotic agent
CPT/HCPCS: 36415; 71045; 80053; 81025; 82962; 84484; 85025; 93005; 96372; 99284; J1815; J3490

== ENCOUNTER 2018-10-26 23:51 | Emergency (ER) | payer MEDICAID ==
[~2018-10-26] VITALS: Ht 167.6 cm; Wt 66.0 kg
[2018-10-27] MEDS ORDERED: SODIUM CHLORIDE 0.9% 1,000 ML IV ONE ×2 (00:54→02:30)
[2018-10-27] MEDS ORDERED: LORAZEPAM 2MG/ML CPJ IV ONE (01:00)
[2018-10-27 01:43] LABS: CLARITY URINE CLEAR (CLEAR); COLOR URINE YELLOW (YELLOW); KETONES URINE NEGATIVE (NEGATIVE); LEUKOCYTE ESTERASE URINE NEGATIVE (NEGATIVE); NITRITE URINE NEGATIVE (NEGATIVE); OCCULT BLOOD URINE NEGATIVE (NEGATIVE); PH URINE 5.5 (4.5-8.0); PROTEIN URINE NEGATIVE (NEGATIVE); SPECIFIC GRAVITY URINE 1.028 (1.005-1.030); UROBILINOGEN URINE 0.2 E.U./dL (0.2-1.0)
[2018-10-27 01:53] LABS: *BARBITURATES SCREEN URINE NEGATIVE (NEGATIVE); *BENZODIAZEPINES SCREEN URINE NEGATIVE (NEGATIVE)
[2018-10-27 01:54] LABS: *COCAINE SCREEN URINE NEGATIVE (NEGATIVE); CANNABINOID URINE SCREEN NEGATIVE (NEGATIVE); METHADONE URINE SCREEN NEGATIVE (NEGATIVE); OPIATES URINE SCREEN NEGATIVE (NEGATIVE); PHENCYCLIDINE URINE SCREEN NEGATIVE (NEGATIVE)
[2018-10-27 01:54] LABS: BASOPHILS % 0.3 % (0.0-2.0); EOSINOPHILS % 2.1 % (0.0-5.0); HEMATOCRIT. 31.6 % (36.0-48.0); HEMOGLOBIN. 10.2 g/dL (12.0-16.0); LYMPHOCYTES % 26.2 % (20.0-50.0); MEAN CORPUSCULAR HEMOGLOBIN 29.3 pg (28.0-32.0); MEAN CORPUSCULAR VOLUME 90.6 fL (81.0-99.0); MEAN PLATELET VOLUME 8.7 fl (7.4-10.4); MONOCYTES % 3.6 % (2.0-8.0); NEUTROPHILS % 67.8 % (40.0-76.0); PLATELET 284 x1000/uL (130-400); RED BLOOD CELL COUNT 3.48 mill/uL (4.2-5.4); RED CELL DISTRIBUTION WIDTH 15.2 % (11.6-14.6)
[2018-10-27 01:56] LABS: CHLORIDE 99 mEq/L (98-107)
[2018-10-27 02:00] LABS: ETHANOL BLOOD < 10 mg/dL
[2018-10-27 02:04] LABS: *AMPHETAMINES SCREEN URINE PRESUMTIVE POSITIVE (NEGATIVE)
[2018-10-27 05:22] VITALS: BP 112/82
== END 2018-10-27 05:30 | disposition left against medical advice (07) ==
LOC: ER 23:51
DX: E11.65 Type 2 diabetes mellitus with hyperglycemia (principal); F41.9 Anxiety disorder, unspecified; F15.10 Other stimulant abuse, uncomplicated; Z88.2 Allergy status to sulfonamides; Z88.1 Allergy status to other antibiotic agents; Z88.6 Allergy status to analgesic agent; Z91.041 Radiographic dye allergy status
CPT/HCPCS: 36415; 80053; 80305; 80320; 81003; 81025; 82962; 85025; 93005; 96361; 96374; 99284; J2060; J7030; G0480

== ENCOUNTER 2018-10-30 01:45 | Emergency (ER) | payer MEDICAID ==
[~2018-10-30] VITALS: Ht 165.1 cm; Wt 60.0 kg
[2018-10-30] MEDS ORDERED: LORAZEPAM 2MG/ML CPJ IM ONE (04:45)
[2018-10-30 06:42] VITALS: BP 119/70
== END 2018-10-30 06:42 | disposition home or self-care (01) ==
LOC: ER 01:45
DX: F41.9 Anxiety disorder, unspecified (principal); E11.9 Type 2 diabetes mellitus without complications; F20.9 Schizophrenia, unspecified; F15.10 Other stimulant abuse, uncomplicated; Z88.5 Allergy status to narcotic agent; Z88.2 Allergy status to sulfonamides; Z88.6 Allergy status to analgesic agent; Z88.3 Allergy status to other anti-infective agents; Z91.041 Radiographic dye allergy status
CPT/HCPCS: 96372; 99284; J2060

== ENCOUNTER 2018-10-31 02:36 | Emergency (ER) | payer MEDICAID ==
[~2018-10-31] VITALS: Ht 157.5 cm; Wt 54.0 kg
[2018-10-31] MEDS ORDERED: OLANZAPINE 10 MG/VIAL IM ONE (07:45)
[2018-10-31] MEDS ORDERED: DIPHENHYDRAMINE 50MG/ML VIAL IM ONE (07:45)
[2018-10-31] MEDS ORDERED: OLANZAPINE 5MG TABLET ODT PO ONE (08:00)
[2018-10-31 12:24] VITALS: BP 105/68
== END 2018-10-31 12:25 | disposition home or self-care (01) ==
LOC: ER 02:36
DX: F15.10 Other stimulant abuse, uncomplicated (principal); L29.9 Pruritus, unspecified; E11.9 Type 2 diabetes mellitus without complications; Z88.2 Allergy status to sulfonamides; Z91.041 Radiographic dye allergy status; Z88.6 Allergy status to analgesic agent; Z88.1 Allergy status to other antibiotic agents
CPT/HCPCS: 82962; 96372; 99283; J1200

== ENCOUNTER 2018-11-01 13:59 | Emergency (ER) | payer MEDICAID ==
[~2018-11-01] VITALS: Ht 162.6 cm; Wt 65.0 kg
[2018-11-01] MEDS ORDERED: LORAZEPAM 2MG/ML CPJ IV STA (14:45)
[2018-11-01] MEDS ORDERED: SODIUM CHLORIDE 0.9% 1,000 ML IV ONE (14:45)
[2018-11-01] MEDS ORDERED: LORAZEPAM 2MG/ML CPJ IM ONE (15:15)
[2018-11-01 15:30] LABS: CLARITY URINE CLOUDY (CLEAR); COLOR URINE YELLOW (YELLOW); KETONES URINE NEGATIVE (NEGATIVE); LEUKOCYTE ESTERASE URINE NEGATIVE (NEGATIVE); NITRITE URINE NEGATIVE (NEGATIVE); OCCULT BLOOD URINE 3+ (NEGATIVE); PROTEIN URINE NEGATIVE (NEGATIVE); SPECIFIC GRAVITY URINE 1.035 (1.005-1.030); UROBILINOGEN URINE 0.2 E.U./dL (0.2-1.0)
[2018-11-01 15:37] LABS: BASOPHILS % 0.9 % (0.0-2.0); HEMATOCRIT. 29.7 % (36.0-48.0); LYMPHOCYTES % 42.7 % (20.0-50.0); MEAN CORPUSCULAR HEMOGLOBIN 29.6 pg (28.0-32.0); MEAN CORPUSCULAR VOLUME 87.9 fL (81.0-99.0); MEAN PLATELET VOLUME 7.9 fl (7.4-10.4); MONOCYTES % 5.2 % (2.0-8.0); NEUTROPHILS % 47.2 % (40.0-76.0); PLATELET 351 x1000/uL (130-400); RED BLOOD CELL COUNT 3.38 mill/uL (4.2-5.4); RED CELL DISTRIBUTION WIDTH 15.6 % (11.6-14.6)
[2018-11-01 15:43] LABS: CHLORIDE 106 mEq/L (98-107)
[2018-11-01 15:49] LABS: ETHANOL BLOOD < 10 mg/dL
[2018-11-01 16:04] LABS: HCG SCREEN NEGATIVE
[2018-11-01 17:15] LABS: *BARBITURATES SCREEN URINE NEGATIVE (NEGATIVE)
[2018-11-01 17:16] LABS: *BENZODIAZEPINES SCREEN URINE NEGATIVE (NEGATIVE); *COCAINE SCREEN URINE NEGATIVE (NEGATIVE); METHADONE URINE SCREEN NEGATIVE (NEGATIVE)
[2018-11-01 17:17] LABS: CANNABINOID URINE SCREEN NEGATIVE (NEGATIVE); OPIATES URINE SCREEN NEGATIVE (NEGATIVE); PHENCYCLIDINE URINE SCREEN NEGATIVE (NEGATIVE)
[2018-11-01 17:18] LABS: *AMPHETAMINES SCREEN URINE PRESUMTIVE POSITIVE (NEGATIVE)
[2018-11-01 18:30] VITALS: BP 102/68
== END 2018-11-01 20:26 | disposition home or self-care (01) ==
LOC: ER 13:59
DX: F15.10 Other stimulant abuse, uncomplicated (principal); F16.10 Hallucinogen abuse, uncomplicated; E11.65 Type 2 diabetes mellitus with hyperglycemia; F41.9 Anxiety disorder, unspecified; D64.9 Anemia, unspecified; Z88.5 Allergy status to narcotic agent; Z88.2 Allergy status to sulfonamides; Z88.6 Allergy status to analgesic agent; Z91.041 Radiographic dye allergy status
CPT/HCPCS: 36415; 80053; 80305; 80320; 81003; 84703; 85025; 96372; 99284; J2060; J7030; G0480

== ENCOUNTER 2018-11-02 12:23 | Emergency (ER) | payer MEDICAID ==
[~2018-11-02] VITALS: Ht 165.1 cm; Wt 60.0 kg
[2018-11-02] MEDS ORDERED: SODIUM CHLORIDE 0.9% 1,000 ML IV ONE (12:42)
[2018-11-02] MEDS ORDERED: LORAZEPAM 2MG/ML CPJ IV STA (12:42)
[2018-11-02 13:15] LABS: BASOPHILS % 0.7 % (0.0-2.0); EOSINOPHILS % 2.6 % (0.0-5.0); HEMATOCRIT. 32.1 % (36.0-48.0); HEMOGLOBIN. 10.7 g/dL (12.0-16.0); LYMPHOCYTES % 39.9 % (20.0-50.0); MEAN CORPUSCULAR HEMOGLOBIN 29.5 pg (28.0-32.0); MEAN CORPUSCULAR VOLUME 88.9 fL (81.0-99.0); MEAN PLATELET VOLUME 7.8 fl (7.4-10.4); MONOCYTES % 5.5 % (2.0-8.0); NEUTROPHILS % 51.3 % (40.0-76.0); PLATELET 366 x1000/uL (130-400); RED BLOOD CELL COUNT 3.61 mill/uL (4.2-5.4); RED CELL DISTRIBUTION WIDTH 15.7 % (11.6-14.6)
[2018-11-02] MEDS ORDERED: DIPHENHYDRAMINE 50MG CAPSULE PO ONE (13:15)
[2018-11-02 13:22] LABS: CHLORIDE 104 mEq/L (98-107)
[2018-11-02 13:26] LABS: ETHANOL BLOOD < 10 mg/dL
[2018-11-02] MEDS: LORAZEPAM 2MG/ML CPJ IM PRN ×2 (13:53→14:39)
[2018-11-02 15:33] LABS: CLARITY URINE CLEAR (CLEAR); COLOR URINE YELLOW (YELLOW); KETONES URINE NEGATIVE (NEGATIVE); LEUKOCYTE ESTERASE URINE NEGATIVE (NEGATIVE); NITRITE URINE NEGATIVE (NEGATIVE); OCCULT BLOOD URINE TRACE (NEGATIVE); PROTEIN URINE NEGATIVE (NEGATIVE); SPECIFIC GRAVITY URINE 1.038 (1.005-1.030); UROBILINOGEN URINE 0.2 E.U./dL (0.2-1.0)
[2018-11-02 15:42] VITALS: BP 121/62
[2018-11-02 15:48] LABS: *BARBITURATES SCREEN URINE NEGATIVE (NEGATIVE); *BENZODIAZEPINES SCREEN URINE NEGATIVE (NEGATIVE)
[2018-11-02 15:49] LABS: *COCAINE SCREEN URINE NEGATIVE (NEGATIVE); METHADONE URINE SCREEN NEGATIVE (NEGATIVE); OPIATES URINE SCREEN NEGATIVE (NEGATIVE); PHENCYCLIDINE URINE SCREEN NEGATIVE (NEGATIVE)
[2018-11-02 15:50] LABS: *AMPHETAMINES SCREEN URINE PRESUMTIVE POSITIVE (NEGATIVE); CANNABINOID URINE SCREEN NEGATIVE (NEGATIVE)
== END 2018-11-02 15:55 | disposition home or self-care (01) ==
LOC: ER 12:23
DX: T43.621A Poisoning by amphetamines, accidental (unintentional), initial encounter (principal); F41.1 Generalized anxiety disorder; E11.65 Type 2 diabetes mellitus with hyperglycemia; Z88.5 Allergy status to narcotic agent; Z88.2 Allergy status to sulfonamides; Z88.6 Allergy status to analgesic agent; Z88.3 Allergy status to other anti-infective agents; Z91.041 Radiographic dye allergy status; Y92.018 Other place in single-family (private) house as the place of occurrence of the external cause
CPT/HCPCS: 36415; 80053; 80305; 80307; 80320; 80329; 81003; 81025; 85025; 96372; 99283; J2060; J7030; Q0163; G0480

== ENCOUNTER 2018-11-07 03:33 | Emergency (ER) | payer MEDICAID ==
[~2018-11-07] VITALS: Ht 167.6 cm; Wt 73.0 kg
[2018-11-07] MEDS ORDERED: ACETAMINOPHEN 325MG TABLET PO ONE (06:15)
[2018-11-07 06:23] LABS: *COCAINE SCREEN URINE NEGATIVE (NEGATIVE)
[2018-11-07 06:24] LABS: *BARBITURATES SCREEN URINE NEGATIVE (NEGATIVE); *BENZODIAZEPINES SCREEN URINE NEGATIVE (NEGATIVE); METHADONE URINE SCREEN NEGATIVE (NEGATIVE); PHENCYCLIDINE URINE SCREEN NEGATIVE (NEGATIVE)
[2018-11-07 06:25] LABS: CANNABINOID URINE SCREEN NEGATIVE (NEGATIVE)
[2018-11-07 06:27] LABS: OPIATES URINE SCREEN NEGATIVE (NEGATIVE)
[2018-11-07 06:28] LABS: *AMPHETAMINES SCREEN URINE PRESUMTIVE POSITIVE (NEGATIVE)
[2018-11-07 06:50] VITALS: BP 130/89
== END 2018-11-07 07:00 | disposition home or self-care (01) ==
LOC: ER 03:33
DX: F15.90 Other stimulant use, unspecified, uncomplicated (principal); R51 Headache; F41.9 Anxiety disorder, unspecified; F15.10 Other stimulant abuse, uncomplicated; F17.200 Nicotine dependence, unspecified, uncomplicated; Z88.2 Allergy status to sulfonamides; Z88.6 Allergy status to analgesic agent; Z91.041 Radiographic dye allergy status; Z88.1 Allergy status to other antibiotic agents; Z79.899 Other long term (current) drug therapy
CPT/HCPCS: 80305; 81025; 82962; 99284

== ENCOUNTER 2018-11-10 17:02 | Emergency (ER) | payer MEDICAID ==
[~2018-11-10] VITALS: Ht 160 cm; Wt 73.0 kg
[2018-11-10] MEDS ORDERED: LORAZEPAM 1MG TABLET PO ONE (18:30)
[2018-11-10] MEDS ORDERED: DIPHENHYDRAMINE 50MG/ML VIAL IM PRN (18:30)
[2018-11-10 20:49] VITALS: BP 107/68
== END 2018-11-10 20:49 | disposition home or self-care (01) ==
LOC: ER 17:02
DX: F41.9 Anxiety disorder, unspecified (principal); F15.10 Other stimulant abuse, uncomplicated; E11.9 Type 2 diabetes mellitus without complications; Z98.890 Other specified postprocedural states; Z88.2 Allergy status to sulfonamides; Z88.6 Allergy status to analgesic agent; Z91.041 Radiographic dye allergy status; Z88.1 Allergy status to other antibiotic agents
CPT/HCPCS: 93005; 99284; J1200

== ENCOUNTER 2018-11-21 09:55 | Emergency (ER) | payer MEDICAID ==
[~2018-11-21] VITALS: Ht 157.5 cm; Wt 65.0 kg
[2018-11-21] MEDS ORDERED: SODIUM CHLORIDE 0.9% 1,000 ML IV ONE (10:19)
[2018-11-21 12:39] VITALS: BP 118/86
== END 2018-11-21 12:41 | disposition home or self-care (01) ==
LOC: ER 09:55
DX: F15.10 Other stimulant abuse, uncomplicated (principal); Z76.5 Malingerer [conscious simulation]; F41.9 Anxiety disorder, unspecified; E11.9 Type 2 diabetes mellitus without complications; Z98.890 Other specified postprocedural states; Z88.2 Allergy status to sulfonamides; Z88.6 Allergy status to analgesic agent; Z91.041 Radiographic dye allergy status; Z88.1 Allergy status to other antibiotic agents
CPT/HCPCS: 82962; 99283; J7030

== ENCOUNTER 2018-11-21 23:14 | Emergency (ER) | payer MEDICAID ==
[~2018-11-21] VITALS: Ht 162.6 cm; Wt 65.0 kg
[2018-11-22] MEDS ORDERED: SODIUM CHLORIDE 0.9% 1,000 ML IV ONE (02:11)
[2018-11-22 03:22] LABS: BASOPHILS % 0.6 % (0.0-2.0); EOSINOPHILS % 2.4 % (0.0-5.0); HEMATOCRIT. 33.7 % (36.0-48.0); HEMOGLOBIN. 11.1 g/dL (12.0-16.0); LYMPHOCYTES % 41.7 % (20.0-50.0); MEAN CORPUSCULAR HEMOGLOBIN 29.1 pg (28.0-32.0); MEAN CORPUSCULAR VOLUME 88.2 fL (81.0-99.0); MEAN PLATELET VOLUME 8.4 fl (7.4-10.4); MONOCYTES % 5.5 % (2.0-8.0); NEUTROPHILS % 49.8 % (40.0-76.0); PLATELET 327 x1000/uL (130-400); RED BLOOD CELL COUNT 3.82 mill/uL (4.2-5.4); RED CELL DISTRIBUTION WIDTH 16.2 % (11.6-14.6)
[2018-11-22 03:28] LABS: CHLORIDE 104 mEq/L (98-107)
[2018-11-22 03:30] LABS: HCG SCREEN NEGATIVE
[2018-11-22 03:31] LABS: ETHANOL BLOOD < 10 mg/dL
[2018-11-22] MEDS ORDERED: LORAZEPAM 1MG TABLET PO ONE (06:45)
[2018-11-22 07:15] VITALS: BP 128/98
== END 2018-11-22 07:18 | disposition home or self-care (01) ==
LOC: ER 23:14
DX: T43.621A Poisoning by amphetamines, accidental (unintentional), initial encounter (principal); Z76.5 Malingerer [conscious simulation]; F41.9 Anxiety disorder, unspecified; F17.210 Nicotine dependence, cigarettes, uncomplicated; Z88.5 Allergy status to narcotic agent; Z88.6 Allergy status to analgesic agent; Z88.2 Allergy status to sulfonamides; Z88.3 Allergy status to other anti-infective agents; Y92.018 Other place in single-family (private) house as the place of occurrence of the external cause
CPT/HCPCS: 36415; 80053; 80320; 84703; 85025; 99283; J7030; G0480

== ENCOUNTER 2018-11-22 08:13 | Emergency (ER) | payer MEDICAID ==
[~2018-11-22] VITALS: Ht 157.5 cm; Wt 63.0 kg
[2018-11-22 08:22] VITALS: BP 125/80
== END 2018-11-22 10:34 | disposition left against medical advice (07) ==
LOC: ER 08:13
DX: Z53.21 Procedure and treatment not carried out due to patient leaving prior to being seen by health care provider (principal)

== ENCOUNTER 2018-11-24 16:03 | Emergency (ER) | payer MEDICAID ==
[~2018-11-24] VITALS: Ht 165.1 cm; Wt 59.0 kg
[2018-11-24] MEDS ORDERED: DIPHENHYDRAMINE 50MG CAPSULE PO ONE (21:45)
[2018-11-24] MEDS ORDERED: LORAZEPAM 1MG TABLET PO ONE (21:45)
[2018-11-24 21:58] LABS: BASOPHILS % 0.5 % (0.0-2.0); EOSINOPHILS % 3.8 % (0.0-5.0); HEMATOCRIT. 30.5 % (36.0-48.0); HEMOGLOBIN. 10.2 g/dL (12.0-16.0); LYMPHOCYTES % 43.3 % (20.0-50.0); MEAN CORPUSCULAR HEMOGLOBIN 29.3 pg (28.0-32.0); MEAN CORPUSCULAR VOLUME 87.5 fL (81.0-99.0); MEAN PLATELET VOLUME 7.9 fl (7.4-10.4); NEUTROPHILS % 48.4 % (40.0-76.0); PLATELET 322 x1000/uL (130-400); RED BLOOD CELL COUNT 3.49 mill/uL (4.2-5.4); RED CELL DISTRIBUTION WIDTH 16.1 % (11.6-14.6)
[2018-11-24 22:03] LABS: CHLORIDE 102 mEq/L (98-107)
[2018-11-24 22:06] LABS: ETHANOL BLOOD < 10 mg/dL
[2018-11-24 22:54] VITALS: BP 115/82
[2018-11-24 22:57] LABS: CLARITY URINE CLEAR (CLEAR); COLOR URINE YELLOW (YELLOW); KETONES URINE NEGATIVE (NEGATIVE); LEUKOCYTE ESTERASE URINE TRACE (NEGATIVE); NITRITE URINE NEGATIVE (NEGATIVE); OCCULT BLOOD URINE NEGATIVE (NEGATIVE); PH URINE 5.5 (4.5-8.0); PROTEIN URINE NEGATIVE (NEGATIVE); SPECIFIC GRAVITY URINE 1.024 (1.005-1.030); UROBILINOGEN URINE 0.2 E.U./dL (0.2-1.0)
[2018-11-24 23:07] LABS: *BARBITURATES SCREEN URINE NEGATIVE (NEGATIVE); *BENZODIAZEPINES SCREEN URINE NEGATIVE (NEGATIVE); *COCAINE SCREEN URINE NEGATIVE (NEGATIVE); METHADONE URINE SCREEN NEGATIVE (NEGATIVE); OPIATES URINE SCREEN NEGATIVE (NEGATIVE)
[2018-11-24 23:08] LABS: CANNABINOID URINE SCREEN NEGATIVE (NEGATIVE); PHENCYCLIDINE URINE SCREEN NEGATIVE (NEGATIVE)
[2018-11-24 23:10] LABS: *AMPHETAMINES SCREEN URINE PRESUMTIVE POSITIVE (NEGATIVE)
== END 2018-11-24 23:55 | disposition home or self-care (01) ==
LOC: ER 16:03
DX: T43.621A Poisoning by amphetamines, accidental (unintentional), initial encounter (principal); Y92.89 Other specified places as the place of occurrence of the external cause; R73.9 Hyperglycemia, unspecified; F15.10 Other stimulant abuse, uncomplicated; F41.9 Anxiety disorder, unspecified; Z88.2 Allergy status to sulfonamides; Z88.6 Allergy status to analgesic agent; Z88.1 Allergy status to other antibiotic agents
CPT/HCPCS: 36415; 80053; 80305; 80320; 81003; 81025; 85025; 99283; Q0163; G0480

== ENCOUNTER 2018-11-30 09:05 | Emergency (ER) | payer MEDICAID ==
[~2018-11-30] VITALS: Ht 165.1 cm; Wt 62.0 kg
[2018-11-30] MEDS ORDERED: DIPHENHYDRAMINE 50MG/ML VIAL IV ONE (09:45)
[2018-11-30] MEDS ORDERED: SODIUM CHLORIDE 0.9% 1,000 ML IV ONE (09:45)
[2018-11-30] MEDS ORDERED: LORAZEPAM 2MG/ML CPJ IV ONE (09:45)
[2018-11-30 10:04] LABS: CLARITY URINE CLEAR (CLEAR); COLOR URINE YELLOW (YELLOW); KETONES URINE NEGATIVE (NEGATIVE); LEUKOCYTE ESTERASE URINE NEGATIVE (NEGATIVE); NITRITE URINE NEGATIVE (NEGATIVE); OCCULT BLOOD URINE NEGATIVE (NEGATIVE); PROTEIN URINE NEGATIVE (NEGATIVE); SPECIFIC GRAVITY URINE 1.034 (1.005-1.030); UROBILINOGEN URINE 0.2 E.U./dL (0.2-1.0)
[2018-11-30 10:18] LABS: *BARBITURATES SCREEN URINE NEGATIVE (NEGATIVE); *BENZODIAZEPINES SCREEN URINE NEGATIVE (NEGATIVE); *COCAINE SCREEN URINE NEGATIVE (NEGATIVE); CANNABINOID URINE SCREEN NEGATIVE (NEGATIVE); OPIATES URINE SCREEN NEGATIVE (NEGATIVE); PHENCYCLIDINE URINE SCREEN NEGATIVE (NEGATIVE)
[2018-11-30 10:19] LABS: METHADONE URINE SCREEN NEGATIVE (NEGATIVE)
[2018-11-30 10:27] LABS: *AMPHETAMINES SCREEN URINE PRESUMTIVE POSITIVE (NEGATIVE)
[2018-11-30 10:27] LABS: BASOPHILS % 0.7 % (0.0-2.0); HEMATOCRIT. 29.9 % (36.0-48.0); HEMOGLOBIN. 9.9 g/dL (12.0-16.0); MEAN CORPUSCULAR HEMOGLOBIN 29.3 pg (28.0-32.0); MEAN CORPUSCULAR VOLUME 88.8 fL (81.0-99.0); MEAN PLATELET VOLUME 8.5 fl (7.4-10.4); MONOCYTES % 5.2 % (2.0-8.0); NEUTROPHILS % 47.1 % (40.0-76.0); PLATELET 288 x1000/uL (130-400); RED BLOOD CELL COUNT 3.37 mill/uL (4.2-5.4); RED CELL DISTRIBUTION WIDTH 16.8 % (11.6-14.6)
[2018-11-30 10:34] LABS: INR 0.9; PROTHROMBIN TIME 9.2 sec (9.6-11.0)
[2018-11-30 10:36] LABS: CHLORIDE 103 mEq/L (98-107)
[2018-11-30] MEDS ORDERED: LORAZEPAM 0.5MG TABLET PO ONE (11:00)
[2018-11-30] MEDS ORDERED: INSULIN REGULAR (HUMULIN R) 300UNITS/3ML SUBCUT ONE (11:00)
[2018-11-30 11:39] VITALS: BP 110/74
== END 2018-11-30 12:16 | disposition home or self-care (01) ==
LOC: ER 09:05
DX: F15.10 Other stimulant abuse, uncomplicated (principal); E11.65 Type 2 diabetes mellitus with hyperglycemia; F41.9 Anxiety disorder, unspecified; Z88.2 Allergy status to sulfonamides; Z88.6 Allergy status to analgesic agent; Z88.3 Allergy status to other anti-infective agents; Z91.041 Radiographic dye allergy status
CPT/HCPCS: 36415; 71045; 80053; 80305; 81003; 81025; 85025; 85610; 93005; 96361; 96372; 96374; 96375; 99284; J1200; J1815; J2060; J7030; Z7610

== ENCOUNTER 2018-11-30 21:17 | Emergency (ER) | payer MEDICAID ==
[~2018-11-30] VITALS: Ht 162.6 cm; Wt 65.9 kg
[2018-11-30 21:21] VITALS: BP 117/80
[2018-11-30] MEDS ORDERED: LORAZEPAM 2MG/ML CPJ IM ONE (23:45)
== END 2018-12-01 00:31 | disposition home or self-care (01) ==
LOC: ER 21:17
DX: F41.9 Anxiety disorder, unspecified (principal); F15.10 Other stimulant abuse, uncomplicated; E11.9 Type 2 diabetes mellitus without complications; Z88.2 Allergy status to sulfonamides; Z91.041 Radiographic dye allergy status; Z88.1 Allergy status to other antibiotic agents; Z88.6 Allergy status to analgesic agent
CPT/HCPCS: 96372; 99284; J2060

== ENCOUNTER 2018-12-01 00:53 | Emergency (ER) | payer MEDICAID ==
[~2018-12-01] VITALS: Ht 157.5 cm; Wt 59.0 kg
[2018-12-01 00:56] VITALS: BP 127/78
== END 2018-12-01 03:15 | disposition left against medical advice (07) ==
LOC: ER 00:53
DX: F41.9 Anxiety disorder, unspecified (principal); Z53.21 Procedure and treatment not carried out due to patient leaving prior to being seen by health care provider

== ENCOUNTER 2018-12-15 17:11 | Emergency (ER) | payer MEDICAID ==
[~2018-12-15] VITALS: Ht 162.6 cm; Wt 50.0 kg
[2018-12-15] MEDS ORDERED: ONDANSETRON HCL 4MG/2ML INJ IV STA (18:10)
[2018-12-15] MEDS ORDERED: SODIUM CHLORIDE 0.9% 1,000 ML IV ONE (18:10)
[2018-12-15] MEDS ORDERED: ACETAMINOPHEN 325MG TABLET PO STA (18:10)
[2018-12-15] MEDS ORDERED: LORAZEPAM 2MG/ML CPJ IV ONE (18:15)
[2018-12-15 18:30] LABS: *BARBITURATES SCREEN URINE NEGATIVE (NEGATIVE); *BENZODIAZEPINES SCREEN URINE NEGATIVE (NEGATIVE); *COCAINE SCREEN URINE NEGATIVE (NEGATIVE)
[2018-12-15] MEDS ORDERED: FAMOTIDINE 20MG/2ML VIAL IV ONE (18:30)
[2018-12-15] MEDS ORDERED: MAGNESIUM/ALUMINUM HYDROXIDE/SIMETHICONE 30ML UDC PO ONE (18:30)
[2018-12-15 18:31] LABS: CANNABINOID URINE SCREEN NEGATIVE (NEGATIVE); METHADONE URINE SCREEN NEGATIVE (NEGATIVE); OPIATES URINE SCREEN NEGATIVE (NEGATIVE); PHENCYCLIDINE URINE SCREEN NEGATIVE (NEGATIVE)
[2018-12-15 18:33] LABS: *AMPHETAMINES SCREEN URINE PRESUMTIVE POSITIVE (NEGATIVE)
[2018-12-15 19:10] LABS: CHLORIDE 105 mEq/L (98-107)
[2018-12-15 19:13] LABS: BASOPHILS % 0.4 % (0.0-2.0); EOSINOPHILS % 1.2 % (0.0-5.0); HEMATOCRIT. 30.6 % (36.0-48.0); HEMOGLOBIN. 9.9 g/dL (12.0-16.0); LYMPHOCYTES % 28.2 % (20.0-50.0); MEAN CORPUSCULAR VOLUME 86.1 fL (81.0-99.0); MEAN PLATELET VOLUME 7.5 fl (7.4-10.4); MONOCYTES % 5.1 % (2.0-8.0); NEUTROPHILS % 65.1 % (40.0-76.0); PLATELET 408 x1000/uL (130-400); RED BLOOD CELL COUNT 3.55 mill/uL (4.2-5.4); RED CELL DISTRIBUTION WIDTH 16.8 % (11.6-14.6)
[2018-12-15 19:15] LABS: ETHANOL BLOOD < 10 mg/dL; HCG SCREEN NEGATIVE
[2018-12-15 19:19] LABS: CREATINE KINASE 87 IU/L (26-192)
[2018-12-15 19:22] LABS: CREATINE KINASE MB FRACTION < 1.0 ng/mL (0.5-3.6)
[2018-12-15] MEDS ORDERED: FAMOTIDINE 20MG TABLET PO ONE (20:30)
[2018-12-15] MEDS ORDERED: KETOROLAC 30MG/ML VIAL IM ONE (20:30)
[2018-12-15] MEDS ORDERED: ONDANSETRON 4MG ODT PO ONE (20:30)
[2018-12-15] MEDS ORDERED: LORAZEPAM 1MG TABLET PO ONE (20:30)
[2018-12-16 01:09] VITALS: BP 130/91
== END 2018-12-16 01:15 | disposition home or self-care (01) ==
LOC: ER 17:11
DX: T43.621A Poisoning by amphetamines, accidental (unintentional), initial encounter (principal); R00.2 Palpitations; E86.0 Dehydration; K29.70 Gastritis, unspecified, without bleeding; E11.9 Type 2 diabetes mellitus without complications; F15.10 Other stimulant abuse, uncomplicated; Z88.3 Allergy status to other anti-infective agents; Z91.041 Radiographic dye allergy status; Z88.5 Allergy status to narcotic agent; Z91.013 Allergy to seafood; Y92.488 Other paved roadways as the place of occurrence of the external cause
CPT/HCPCS: 36415; 80053; 80305; 80320; 82550; 82553; 83690; 84443; 84484; 84703; 85025; 93005; 96372; 99284; J1885; J7030; Q0162; G0480

== ENCOUNTER 2018-12-18 14:27 | Emergency (ER) | payer MEDICAID ==
[~2018-12-18] VITALS: Ht 157.5 cm; Wt 64.0 kg
[2018-12-18 14:55] VITALS: BP 122/60
[2018-12-18] MEDS ORDERED: SODIUM CHLORIDE 0.9% 1,000 ML IV ONE (15:12)
[2018-12-18] MEDS ORDERED: LORAZEPAM 2MG/ML CPJ IV ONE (15:30)
[2018-12-18 15:55] LABS: BASOPHILS % 0.6 % (0.0-2.0); EOSINOPHILS % 4.1 % (0.0-5.0); HEMATOCRIT. 29.1 % (36.0-48.0); HEMOGLOBIN. 9.5 g/dL (12.0-16.0); MEAN CORPUSCULAR HEMOGLOBIN 28.3 pg (28.0-32.0); MEAN CORPUSCULAR VOLUME 86.4 fL (81.0-99.0); MEAN PLATELET VOLUME 7.6 fl (7.4-10.4); MONOCYTES % 7.2 % (2.0-8.0); NEUTROPHILS % 46.1 % (40.0-76.0); PLATELET 362 x1000/uL (130-400); RED BLOOD CELL COUNT 3.37 mill/uL (4.2-5.4); RED CELL DISTRIBUTION WIDTH 16.8 % (11.6-14.6)
[2018-12-18 15:57] LABS: CHLORIDE 107 mEq/L (98-107)
[2018-12-18 16:08] LABS: B-HCG QUANTITATIVE < 1 mIU/mL (<3)
== END 2018-12-18 18:15 | disposition home or self-care (01) ==
LOC: ER 14:27
DX: R10.30 Lower abdominal pain, unspecified (principal); F15.10 Other stimulant abuse, uncomplicated; F41.9 Anxiety disorder, unspecified; E11.9 Type 2 diabetes mellitus without complications; G40.909 Epilepsy, unspecified, not intractable, without status epilepticus; Z88.5 Allergy status to narcotic agent; Z88.2 Allergy status to sulfonamides; Z88.6 Allergy status to analgesic agent; Z88.3 Allergy status to other anti-infective agents; Z91.041 Radiographic dye allergy status
CPT/HCPCS: 36415; 76856; 80053; 84702; 85025; 86850; 86900; 86901; 99284; J2060; J7030

== ENCOUNTER 2018-12-19 09:12 | Emergency (ER) | payer MEDICAID ==
[~2018-12-19] VITALS: Ht 172.7 cm; Wt 75.0 kg
[2018-12-19 10:02] LABS: CHLORIDE 108 mEq/L (98-107)
[2018-12-19 10:08] LABS: BASOPHILS % 0.6 % (0.0-2.0); EOSINOPHILS % 3.2 % (0.0-5.0); HEMATOCRIT. 28.5 % (36.0-48.0); HEMOGLOBIN. 9.3 g/dL (12.0-16.0); LYMPHOCYTES % 39.4 % (20.0-50.0); MEAN CORPUSCULAR HEMOGLOBIN 28.2 pg (28.0-32.0); MEAN CORPUSCULAR VOLUME 86.6 fL (81.0-99.0); MEAN PLATELET VOLUME 7.4 fl (7.4-10.4); MONOCYTES % 6.9 % (2.0-8.0); NEUTROPHILS % 49.9 % (40.0-76.0); PLATELET 377 x1000/uL (130-400); RED BLOOD CELL COUNT 3.29 mill/uL (4.2-5.4); RED CELL DISTRIBUTION WIDTH 16.8 % (11.6-14.6)
[2018-12-19 10:13] LABS: B-HCG QUANTITATIVE < 1 mIU/mL (<3)
[2018-12-19 11:11] VITALS: BP 124/74
== END 2018-12-19 11:14 | disposition home or self-care (01) ==
LOC: ER 09:12
DX: R10.9 Unspecified abdominal pain (principal); F41.9 Anxiety disorder, unspecified; E11.9 Type 2 diabetes mellitus without complications; F15.10 Other stimulant abuse, uncomplicated; Z76.5 Malingerer [conscious simulation]; Z88.2 Allergy status to sulfonamides; Z91.041 Radiographic dye allergy status; Z88.6 Allergy status to analgesic agent; Z88.1 Allergy status to other antibiotic agents
CPT/HCPCS: 36415; 76856; 81025; 84702; 86850; 86900; 99284

== ENCOUNTER 2018-12-19 12:40 | Emergency (ER) | payer MEDICAID ==
[~2018-12-19] VITALS: Ht 157.5 cm; Wt 69.0 kg
[2018-12-19 12:46] VITALS: BP 181/151
== END 2018-12-19 14:47 | disposition home or self-care (01) ==
LOC: ER 12:40
DX: T43.625A Adverse effect of amphetamines, initial encounter (principal); Z76.5 Malingerer [conscious simulation]; F41.9 Anxiety disorder, unspecified; E11.9 Type 2 diabetes mellitus without complications; Z98.890 Other specified postprocedural states; Z88.2 Allergy status to sulfonamides; Z88.6 Allergy status to analgesic agent; Z91.041 Radiographic dye allergy status; Z88.1 Allergy status to other antibiotic agents; Y92.89 Other specified places as the place of occurrence of the external cause
CPT/HCPCS: 99281

== ENCOUNTER 2018-12-19 14:15 | Emergency (ER) | payer MEDICAID ==
[~2018-12-19] VITALS: Ht 165.1 cm; Wt 72.0 kg
[2018-12-19 14:24] VITALS: BP 106/74
== END 2018-12-19 17:57 | disposition home or self-care (01) ==
LOC: ER 14:15
DX: F41.9 Anxiety disorder, unspecified (principal); Z76.5 Malingerer [conscious simulation]; E11.9 Type 2 diabetes mellitus without complications; F15.10 Other stimulant abuse, uncomplicated; Z88.2 Allergy status to sulfonamides; Z88.6 Allergy status to analgesic agent; Z91.041 Radiographic dye allergy status; Z88.1 Allergy status to other antibiotic agents; Z98.890 Other specified postprocedural states
CPT/HCPCS: 99283

== ENCOUNTER 2018-12-20 06:46 | Emergency (ER) | payer MEDICAID ==
[~2018-12-20] VITALS: Ht 157.5 cm; Wt 69.0 kg
[2018-12-20 07:35] VITALS: BP 110/50
== END 2018-12-20 07:35 | disposition home or self-care (01) ==
LOC: ER 06:46
DX: R10.2 Pelvic and perineal pain (principal); E11.9 Type 2 diabetes mellitus without complications; F12.10 Cannabis abuse, uncomplicated; F15.10 Other stimulant abuse, uncomplicated; Z98.890 Other specified postprocedural states; Z88.2 Allergy status to sulfonamides; Z88.6 Allergy status to analgesic agent; Z88.3 Allergy status to other anti-infective agents; Z91.041 Radiographic dye allergy status
CPT/HCPCS: 82962; 99282

== ENCOUNTER 2018-12-21 18:42 | Emergency (ER) | payer MEDICAID ==
[~2018-12-21] VITALS: Ht 160 cm; Wt 66.0 kg
[2018-12-21] MEDS ORDERED: ONDANSETRON HCL 4MG/2ML INJ IV STA (19:11)
[2018-12-21] MEDS ORDERED: SODIUM CHLORIDE 0.9% 1,000 ML IV ONE (19:11)
[2018-12-21] MEDS ORDERED: LORAZEPAM 2MG/ML CPJ IV ONE (19:15)
[2018-12-21] MEDS ORDERED: ACETAMINOPHEN 325MG TABLET PO ONE (19:15)
[2018-12-21 19:46] LABS: CLARITY URINE CLEAR (CLEAR); COLOR URINE YELLOW (YELLOW); KETONES URINE NEGATIVE (NEGATIVE); LEUKOCYTE ESTERASE URINE NEGATIVE (NEGATIVE); NITRITE URINE NEGATIVE (NEGATIVE); OCCULT BLOOD URINE 2+ (NEGATIVE); PH URINE 5.5 (4.5-8.0); PROTEIN URINE NEGATIVE (NEGATIVE); SPECIFIC GRAVITY URINE 1.029 (1.005-1.030); UROBILINOGEN URINE 0.2 E.U./dL (0.2-1.0)
[2018-12-21 19:49] LABS: BASOPHILS % 0.7 % (0.0-2.0); EOSINOPHILS % 2.9 % (0.0-5.0); HEMATOCRIT. 28.8 % (36.0-48.0); HEMOGLOBIN. 9.2 g/dL (12.0-16.0); MEAN CORPUSCULAR VOLUME 87.3 fL (81.0-99.0); MEAN PLATELET VOLUME 7.7 fl (7.4-10.4); MONOCYTES % 7.2 % (2.0-8.0); NEUTROPHILS % 43.2 % (40.0-76.0); PLATELET 349 x1000/uL (130-400)
[2018-12-21 19:52] LABS: CHLORIDE 103 mEq/L (98-107)
[2018-12-21 19:58] LABS: ETHANOL BLOOD < 10 mg/dL
[2018-12-21 20:02] LABS: B-HCG QUANTITATIVE < 1 mIU/mL (<3)
[2018-12-21 20:25] LABS: *BARBITURATES SCREEN URINE NEGATIVE (NEGATIVE); *BENZODIAZEPINES SCREEN URINE NEGATIVE (NEGATIVE); *COCAINE SCREEN URINE NEGATIVE (NEGATIVE); METHADONE URINE SCREEN NEGATIVE (NEGATIVE); OPIATES URINE SCREEN NEGATIVE (NEGATIVE); PHENCYCLIDINE URINE SCREEN NEGATIVE (NEGATIVE)
[2018-12-21 20:26] LABS: CANNABINOID URINE SCREEN NEGATIVE (NEGATIVE)
[2018-12-21 20:28] LABS: *AMPHETAMINES SCREEN URINE PRESUMTIVE POSITIVE (NEGATIVE)
[2018-12-21] MEDS ORDERED: INSULIN REGULAR (HUMULIN R) 300UNITS/3ML SUBCUT ONE (20:30)
[2018-12-21] MEDS ORDERED: LEVOFLOXACIN 500MG TABLET PO ONE (21:15)
[2018-12-21 22:36] VITALS: BP 113/73
== END 2018-12-21 22:39 | disposition home or self-care (01) ==
LOC: ER 18:42
DX: E11.65 Type 2 diabetes mellitus with hyperglycemia (principal); N39.0 Urinary tract infection, site not specified; T40.3X1A Poisoning by methadone, accidental (unintentional), initial encounter; F41.9 Anxiety disorder, unspecified; F15.10 Other stimulant abuse, uncomplicated; Z91.041 Radiographic dye allergy status; Z88.5 Allergy status to narcotic agent; Z88.2 Allergy status to sulfonamides; Z88.3 Allergy status to other anti-infective agents; Y92.488 Other paved roadways as the place of occurrence of the external cause
CPT/HCPCS: 36415; 80053; 80305; 80320; 81003; 81025; 82962; 83690; 84702; 85025; 86850; 86900; 86901; 96361; 96372; 96374; 96375; 99283; J1815; J2060; J2405; J7030; G0480

== ENCOUNTER 2018-12-22 17:24 | Emergency (ER) | payer MEDICAID ==
[~2018-12-22] VITALS: Ht 167.6 cm; Wt 64.0 kg
[2018-12-22] MEDS ORDERED: SODIUM CHLORIDE 0.9% 1,000 ML IV ONE (18:31)
[2018-12-22] MEDS ORDERED: LORAZEPAM 2MG/ML CPJ IV ONE (18:45)
[2018-12-22] MEDS ORDERED: ACETAMINOPHEN 325MG TABLET PO ONE (18:45)
[2018-12-22 19:18] LABS: BASOPHILS % 0.8 % (0.0-2.0); EOSINOPHILS % 1.9 % (0.0-5.0); HEMATOCRIT. 29.8 % (36.0-48.0); HEMOGLOBIN. 9.7 g/dL (12.0-16.0); LYMPHOCYTES % 41.9 % (20.0-50.0); MEAN CORPUSCULAR HEMOGLOBIN 28.3 pg (28.0-32.0); MEAN CORPUSCULAR VOLUME 86.5 fL (81.0-99.0); MEAN PLATELET VOLUME 8.1 fl (7.4-10.4); MONOCYTES % 6.4 % (2.0-8.0); PLATELET 388 x1000/uL (130-400); RED BLOOD CELL COUNT 3.44 mill/uL (4.2-5.4); RED CELL DISTRIBUTION WIDTH 16.7 % (11.6-14.6)
[2018-12-22 19:32] LABS: CLARITY URINE CLEAR (CLEAR); COLOR URINE YELLOW (YELLOW); KETONES URINE NEGATIVE (NEGATIVE); LEUKOCYTE ESTERASE URINE NEGATIVE (NEGATIVE); NITRITE URINE NEGATIVE (NEGATIVE); OCCULT BLOOD URINE 3+ (NEGATIVE); PROTEIN URINE 1+ (NEGATIVE); SPECIFIC GRAVITY URINE 1.025 (1.005-1.030)
[2018-12-22 19:49] LABS: *BARBITURATES SCREEN URINE NEGATIVE (NEGATIVE); *BENZODIAZEPINES SCREEN URINE NEGATIVE (NEGATIVE); CANNABINOID URINE SCREEN NEGATIVE (NEGATIVE); METHADONE URINE SCREEN NEGATIVE (NEGATIVE); PHENCYCLIDINE URINE SCREEN NEGATIVE (NEGATIVE)
[2018-12-22 19:50] LABS: *COCAINE SCREEN URINE NEGATIVE (NEGATIVE)
[2018-12-22 20:05] LABS: CHLORIDE 107 mEq/L (98-107)
[2018-12-22 20:09] LABS: ETHANOL BLOOD < 10 mg/dL
[2018-12-22 20:32] LABS: *AMPHETAMINES SCREEN URINE PRESUMTIVE POSITIVE (NEGATIVE); OPIATES URINE SCREEN PRESUMTIVE POSITIVE (NEGATIVE)
[2018-12-22 21:28] VITALS: BP 150/110
== END 2018-12-22 22:02 | disposition home or self-care (01) ==
LOC: ER 17:24
DX: T43.621A Poisoning by amphetamines, accidental (unintentional), initial encounter (principal); X58.XXXA Exposure to other specified factors, initial encounter; T43.641A Poisoning by ecstasy, accidental (unintentional), initial encounter; Y92.89 Other specified places as the place of occurrence of the external cause; F41.9 Anxiety disorder, unspecified; E11.9 Type 2 diabetes mellitus without complications; Z88.6 Allergy status to analgesic agent; Z88.8 Allergy status to other drugs, medicaments and biological substances; Z88.2 Allergy status to sulfonamides
CPT/HCPCS: 36415; 80053; 80305; 80320; 81003; 81025; 85025; 93005; 96374; 99284; J2060; J7030; Z7610; G0480

== ENCOUNTER 2018-12-29 18:21 | Inpatient (IN) | payer MEDICAID ==
[~2018-12-29] VITALS: Ht 162.6 cm; Wt 72.6 kg
[2018-12-29 21:38] LABS: HEMATOCRIT. 34.2 % (36.0-48.0); LYMPHOCYTES % 41.3 % (20.0-50.0); MEAN CORPUSCULAR HEMOGLOBIN 28.1 pg (28.0-32.0); MEAN CORPUSCULAR VOLUME 87.5 fL (81.0-99.0); MEAN PLATELET VOLUME 8.4 fl (7.4-10.4); MONOCYTES % 3.7 % (2.0-8.0); PLATELET 352 x1000/uL (130-400)
[2018-12-29 21:39] LABS: CHLORIDE 105 mEq/L (98-107)
[2018-12-29 21:40] LABS: *BARBITURATES SCREEN URINE NEGATIVE (NEGATIVE); *BENZODIAZEPINES SCREEN URINE NEGATIVE (NEGATIVE); *COCAINE SCREEN URINE NEGATIVE (NEGATIVE); METHADONE URINE SCREEN NEGATIVE (NEGATIVE); OPIATES URINE SCREEN NEGATIVE (NEGATIVE)
[2018-12-29 21:41] LABS: CANNABINOID URINE SCREEN NEGATIVE (NEGATIVE); PHENCYCLIDINE URINE SCREEN NEGATIVE (NEGATIVE)
[2018-12-29 21:43] LABS: ETHANOL BLOOD < 10 mg/dL
[2018-12-29 22:21] LABS: *AMPHETAMINES SCREEN URINE PRESUMTIVE POSITIVE (NEGATIVE)
[2018-12-30 02:38] VITALS: BP 118/84
[2018-12-30] MEDS ORDERED: HYDROCODONE/ACETAMINOPHEN 5/325MG TABLET PO PRN (03:45)
[2018-12-30] MEDS ORDERED: DEXTROSE 50% WATER 50ML SYRINGE IV PRN (03:45)
[2018-12-30] MEDS: LORAZEPAM 2MG/ML CPJ IV PRN ×2 (04:05→11:34)
[2018-12-30] MEDS ORDERED: QUET100T PO (04:48)
[2018-12-30] MEDS ORDERED: INSLIS SUBCUT (04:48)
[2018-12-30] MEDS ORDERED: GABA-531 PO (04:48)
[2018-12-30] MEDS: BLOOD SUGAR DIAGNOSTIC STRIP TEST SCH ×2 (07:58→12:57)
[2018-12-30] MEDS ORDERED: ATOVAQUONE 750MG/5ML PACKET PO SCH (08:10)
[2018-12-30 08:13] VITALS: BP 116/79
[2018-12-30] MEDS: GABAPENTIN 300MG CAPSULE PO SCH ×2 (08:43→13:43)
[2018-12-30] MEDS: INSULIN LISPRO 100 UNITS/ML SUBCUT SCH ×2 (08:45→13:31)
[2018-12-30 10:57] LABS: CHLORIDE 102 mEq/L (98-107)
[2018-12-30 10:59] LABS: BASOPHILS % 0.6 % (0.0-2.0); EOSINOPHILS % 4.4 % (0.0-5.0); HEMATOCRIT. 30.7 % (36.0-48.0); HEMOGLOBIN. 9.8 g/dL (12.0-16.0); LYMPHOCYTES % 40.9 % (20.0-50.0); MEAN CORPUSCULAR HEMOGLOBIN 28.1 pg (28.0-32.0); MEAN CORPUSCULAR VOLUME 87.6 fL (81.0-99.0); MONOCYTES % 6.1 % (2.0-8.0); PLATELET 327 x1000/uL (130-400); RED BLOOD CELL COUNT 3.51 mill/uL (4.2-5.4); RED CELL DISTRIBUTION WIDTH 16.9 % (11.6-14.6)
[2018-12-30 11:46] VITALS: BP 116/67
[2018-12-30 15:48] VITALS: BP 118/84
[2018-12-30 16:18] VITALS: BP 110/73
[2018-12-30] MEDS ORDERED: METOCLOPRAMIDE HCL 10MG/2ML VIAL IV SCH (18:00)
[2018-12-30] MEDS ORDERED: QUETIAPINE FUMARATE 50MG TABLET PO SCH (21:00)
== END 2018-12-30 16:15 | disposition home or self-care (01) | DRG 892 ==
LOC: ER 18:21 → 7WST 23:31 → EDBEDREQ 23:33 → EDBEDREQTM 23:33 → ENRESERV 12-30 01:08
PROVIDERS: ADMIT Internal Medicine; ATTEND Internal Medicine
DX: G92 Toxic encephalopathy (principal); B20 Human immunodeficiency virus [HIV] disease; K31.84 Gastroparesis; E11.43 Type 2 diabetes mellitus with diabetic autonomic (poly)neuropathy; E11.65 Type 2 diabetes mellitus with hyperglycemia; F15.90 Other stimulant use, unspecified, uncomplicated; D64.9 Anemia, unspecified; F41.9 Anxiety disorder, unspecified; Z88.2 Allergy status to sulfonamides; Z88.1 Allergy status to other antibiotic agents; Z88.5 Allergy status to narcotic agent; Z79.4 Long term (current) use of insulin
CPT/HCPCS: 36415; 71045; 78582; 80048; 80305; 80320; 82962; 83036; 83880; 84484; 85379; 93005; 96374; 99285; A9558; J1815; J2060; G0480

== ENCOUNTER 2019-01-10 22:09 | Emergency (ER) | payer MEDICAID ==
[~2019-01-10] VITALS: Ht 160 cm; Wt 59.0 kg
[~2019-01-10 22:09] MED LIST changes: +GABA-531 PO; +INSLIS SUBCUT; -PREN-88 PO; +QUET100T PO
[2019-01-10 22:17] VITALS: BP 131/90
[2019-01-10] MEDS ORDERED: HYDROXYZINE 25MG TABLET PO ONE (23:45)
== END 2019-01-11 01:32 | disposition home or self-care (01) ==
LOC: ER 22:09
DX: F41.9 Anxiety disorder, unspecified (principal); E11.9 Type 2 diabetes mellitus without complications; F15.10 Other stimulant abuse, uncomplicated; F17.210 Nicotine dependence, cigarettes, uncomplicated; Z88.2 Allergy status to sulfonamides; Z88.6 Allergy status to analgesic agent; Z88.3 Allergy status to other anti-infective agents; Z91.041 Radiographic dye allergy status; Z79.4 Long term (current) use of insulin
CPT/HCPCS: 99284

== ENCOUNTER 2019-01-24 21:25 | Emergency (ER) | payer MEDICAID ==
[~2019-01-24] VITALS: Ht 157.5 cm; Wt 64.0 kg
[2019-01-25] MEDS ORDERED: DIPHENHYDRAMINE 25MG CAPSULE PO ONE (00:15)
[2019-01-25 00:40] VITALS: BP 99/63
== END 2019-01-25 01:12 | disposition home or self-care (01) ==
LOC: ER 21:25
DX: F41.9 Anxiety disorder, unspecified (principal); E11.9 Type 2 diabetes mellitus without complications; F20.9 Schizophrenia, unspecified; G40.909 Epilepsy, unspecified, not intractable, without status epilepticus; F15.10 Other stimulant abuse, uncomplicated; F17.210 Nicotine dependence, cigarettes, uncomplicated; Z88.5 Allergy status to narcotic agent; Z88.2 Allergy status to sulfonamides; Z88.3 Allergy status to other anti-infective agents; Z91.041 Radiographic dye allergy status; Z79.4 Long term (current) use of insulin
CPT/HCPCS: 82962; 99284; Q0163

== ENCOUNTER 2019-01-25 01:53 | Emergency (ER) | payer MEDICAID ==
[~2019-01-25] VITALS: Ht 165.1 cm; Wt 73.0 kg
[2019-01-25 01:54] VITALS: BP 117/80
== END 2019-01-25 02:48 | disposition home or self-care (01) ==
LOC: ER 01:53
DX: F41.9 Anxiety disorder, unspecified (principal); F15.10 Other stimulant abuse, uncomplicated; E11.9 Type 2 diabetes mellitus without complications; F20.9 Schizophrenia, unspecified; Z88.5 Allergy status to narcotic agent; Z88.2 Allergy status to sulfonamides; Z88.3 Allergy status to other anti-infective agents; Z91.041 Radiographic dye allergy status; Z79.4 Long term (current) use of insulin
CPT/HCPCS: 99284

== ENCOUNTER 2019-01-25 03:22 | Emergency (ER) | payer MEDICAID ==
[~2019-01-25] VITALS: Ht 160 cm; Wt 59.0 kg
[2019-01-25 03:51] VITALS: BP 125/82
== END 2019-01-25 03:54 | disposition home or self-care (01) ==
LOC: ER 03:22
DX: F41.9 Anxiety disorder, unspecified (principal); F15.10 Other stimulant abuse, uncomplicated; E11.9 Type 2 diabetes mellitus without complications; F20.9 Schizophrenia, unspecified; F17.210 Nicotine dependence, cigarettes, uncomplicated; Z88.5 Allergy status to narcotic agent; Z88.2 Allergy status to sulfonamides; Z88.3 Allergy status to other anti-infective agents; Z79.4 Long term (current) use of insulin; Z91.041 Radiographic dye allergy status; Z86.14 Personal history of Methicillin resistant Staphylococcus aureus infection
CPT/HCPCS: 99284

== ENCOUNTER 2019-01-27 17:06 | Emergency (ER) | payer MEDICAID ==
[~2019-01-27] VITALS: Ht 162.6 cm; Wt 64.0 kg
[2019-01-27] MEDS: LORAZEPAM 2MG/ML CPJ IV ONE ×2 (18:45→18:52)
[2019-01-27 18:51] LABS: BASOPHILS % 0.5 % (0.0-2.0); EOSINOPHILS % 1.9 % (0.0-5.0); HEMATOCRIT. 27.4 % (36.0-48.0); LYMPHOCYTES % 42.3 % (20.0-50.0); MEAN CORPUSCULAR HEMOGLOBIN 27.2 pg (28.0-32.0); MEAN CORPUSCULAR VOLUME 82.8 fL (81.0-99.0); MEAN PLATELET VOLUME 7.9 fl (7.4-10.4); MONOCYTES % 5.2 % (2.0-8.0); NEUTROPHILS % 50.1 % (40.0-76.0); PLATELET 322 x1000/uL (130-400); RED CELL DISTRIBUTION WIDTH 17.2 % (11.6-14.6)
[2019-01-27] MEDS: SODIUM CHLORIDE 0.9% 1,000 ML IV ONE ×2 (18:52→20:30)
[2019-01-27] MEDS: MAGNESIUM/ALUMINUM HYDROXIDE/SIMETHICONE 30ML UDC PO STA ×2 (18:52→19:06)
[2019-01-27 18:58] LABS: CHLORIDE 108 mEq/L (98-107)
[2019-01-27 19:01] LABS: ETHANOL BLOOD < 10 mg/dL
[2019-01-27 19:07] LABS: HCG SCREEN NEGATIVE
[2019-01-27 19:15] LABS: CLARITY URINE CLEAR (CLEAR); COLOR URINE YELLOW (YELLOW); KETONES URINE TRACE (NEGATIVE); LEUKOCYTE ESTERASE URINE NEGATIVE (NEGATIVE); NITRITE URINE NEGATIVE (NEGATIVE); OCCULT BLOOD URINE NEGATIVE (NEGATIVE); PROTEIN URINE 1+ (NEGATIVE); SPECIFIC GRAVITY URINE 1.023 (1.005-1.030); UROBILINOGEN URINE 0.2 E.U./dL (0.2-1.0)
[2019-01-27 19:35] LABS: *BARBITURATES SCREEN URINE NEGATIVE (NEGATIVE); *BENZODIAZEPINES SCREEN URINE NEGATIVE (NEGATIVE); *COCAINE SCREEN URINE NEGATIVE (NEGATIVE); METHADONE URINE SCREEN NEGATIVE (NEGATIVE); OPIATES URINE SCREEN NEGATIVE (NEGATIVE)
[2019-01-27 19:36] LABS: CANNABINOID URINE SCREEN NEGATIVE (NEGATIVE); PHENCYCLIDINE URINE SCREEN NEGATIVE (NEGATIVE)
[2019-01-27 19:37] LABS: *AMPHETAMINES SCREEN URINE PRESUMTIVE POSITIVE (NEGATIVE)
[2019-01-27 21:26] VITALS: BP 121/78
== END 2019-01-27 21:33 | disposition home or self-care (01) ==
LOC: ER 17:06
DX: F15.129 Other stimulant abuse with intoxication, unspecified (principal); R10.13 Epigastric pain; F41.9 Anxiety disorder, unspecified; E11.9 Type 2 diabetes mellitus without complications; Z88.2 Allergy status to sulfonamides; Z88.3 Allergy status to other anti-infective agents; Z91.041 Radiographic dye allergy status; Z79.4 Long term (current) use of insulin; Z86.14 Personal history of Methicillin resistant Staphylococcus aureus infection
CPT/HCPCS: 36415; 80053; 80305; 80320; 81003; 83690; 84703; 85025; 96374; 99283; J2060; J7030; G0480

== ENCOUNTER 2019-01-29 18:10 | Emergency (ER) | payer MEDICAID ==
[~2019-01-29] VITALS: Ht 157.5 cm; Wt 68.0 kg
[2019-01-29 19:11] LABS: CLARITY URINE CLEAR (CLEAR); COLOR URINE YELLOW (YELLOW); KETONES URINE NEGATIVE (NEGATIVE); LEUKOCYTE ESTERASE URINE TRACE (NEGATIVE); NITRITE URINE NEGATIVE (NEGATIVE); OCCULT BLOOD URINE NEGATIVE (NEGATIVE); PROTEIN URINE NEGATIVE (NEGATIVE); SPECIFIC GRAVITY URINE 1.031 (1.005-1.030); UROBILINOGEN URINE 0.2 E.U./dL (0.2-1.0)
[2019-01-29 20:29] LABS: CANNABINOID URINE SCREEN NEGATIVE (NEGATIVE); PHENCYCLIDINE URINE SCREEN NEGATIVE (NEGATIVE)
[2019-01-29 20:30] LABS: *BARBITURATES SCREEN URINE NEGATIVE (NEGATIVE); *BENZODIAZEPINES SCREEN URINE NEGATIVE (NEGATIVE); *COCAINE SCREEN URINE NEGATIVE (NEGATIVE); METHADONE URINE SCREEN NEGATIVE (NEGATIVE); OPIATES URINE SCREEN NEGATIVE (NEGATIVE)
[2019-01-29 20:32] LABS: *AMPHETAMINES SCREEN URINE PRESUMTIVE POSITIVE (NEGATIVE)
[2019-01-29 21:22] VITALS: BP 125/74
== END 2019-01-29 21:23 | disposition home or self-care (01) ==
LOC: ER 18:10
DX: R10.9 Unspecified abdominal pain (principal); F41.9 Anxiety disorder, unspecified; E11.9 Type 2 diabetes mellitus without complications; F15.10 Other stimulant abuse, uncomplicated; Z86.14 Personal history of Methicillin resistant Staphylococcus aureus infection; Z88.2 Allergy status to sulfonamides; Z88.5 Allergy status to narcotic agent; Z88.3 Allergy status to other anti-infective agents; Z91.041 Radiographic dye allergy status; Z79.4 Long term (current) use of insulin
CPT/HCPCS: 76700; 80305; 81003; 81025; 99284

== ENCOUNTER 2019-02-07 14:53 | Emergency (ER) | payer MEDICAID ==
[~2019-02-07] VITALS: Ht 162.6 cm; Wt 64.0 kg
[2019-02-07] MEDS ORDERED: DIPHENHYDRAMINE 50MG/ML VIAL IM ONE (19:15)
[2019-02-07] MEDS ORDERED: HALOPERIDOL LACTATE 5MG/ML VIAL IM ONE (19:15)
[2019-02-07 20:32] LABS: BASOPHILS % 0.6 % (0.0-2.0); EOSINOPHILS % 2.6 % (0.0-5.0); HEMATOCRIT. 27.4 % (36.0-48.0); HEMOGLOBIN. 8.9 g/dL (12.0-16.0); LYMPHOCYTES % 42.1 % (20.0-50.0); MEAN CORPUSCULAR HEMOGLOBIN 27.1 pg (28.0-32.0); MEAN CORPUSCULAR VOLUME 83.1 fL (81.0-99.0); MEAN PLATELET VOLUME 7.9 fl (7.4-10.4); MONOCYTES % 6.7 % (2.0-8.0); PLATELET 330 x1000/uL (130-400); RED CELL DISTRIBUTION WIDTH 18.7 % (11.6-14.6)
[2019-02-07 21:33] LABS: CLARITY URINE TURBID (CLEAR); COLOR URINE YELLOW (YELLOW); KETONES URINE TRACE (NEGATIVE); LEUKOCYTE ESTERASE URINE 2+ (NEGATIVE); NITRITE URINE NEGATIVE (NEGATIVE); OCCULT BLOOD URINE 2+ (NEGATIVE); PH URINE 5.5 (4.5-8.0); PROTEIN URINE 1+ (NEGATIVE); SPECIFIC GRAVITY URINE 1.022 (1.005-1.030)
[2019-02-07 21:40] LABS: CHLORIDE 108 mEq/L (98-107)
[2019-02-07 22:06] LABS: ETHANOL BLOOD < 10 mg/dL
[2019-02-07 23:33] LABS: *BARBITURATES SCREEN URINE NEGATIVE (NEGATIVE); *BENZODIAZEPINES SCREEN URINE NEGATIVE (NEGATIVE); *COCAINE SCREEN URINE NEGATIVE (NEGATIVE); OPIATES URINE SCREEN NEGATIVE (NEGATIVE)
[2019-02-07 23:34] LABS: CANNABINOID URINE SCREEN NEGATIVE (NEGATIVE)
[2019-02-07 23:42] LABS: METHADONE URINE SCREEN NEGATIVE (NEGATIVE); PHENCYCLIDINE URINE SCREEN NEGATIVE (NEGATIVE)
[2019-02-07 23:43] LABS: *AMPHETAMINES SCREEN URINE PRESUMTIVE POSITIVE (NEGATIVE)
[2019-02-08 01:00] VITALS: BP 94/48
== END 2019-02-08 01:39 | disposition home or self-care (01) ==
LOC: ER 14:53
DX: F15.10 Other stimulant abuse, uncomplicated (principal); N39.0 Urinary tract infection, site not specified; F20.9 Schizophrenia, unspecified; E11.9 Type 2 diabetes mellitus without complications; F41.9 Anxiety disorder, unspecified; Z88.5 Allergy status to narcotic agent; Z88.2 Allergy status to sulfonamides; Z88.3 Allergy status to other anti-infective agents; Z91.041 Radiographic dye allergy status; Z79.4 Long term (current) use of insulin
CPT/HCPCS: 36415; 80053; 80305; 80320; 81003; 81025; 85025; 87086; 96372; 99283; J1200; J1630; G0480

== ENCOUNTER 2019-02-11 21:51 | Emergency (ER) | payer MEDICAID ==
[~2019-02-11] VITALS: Ht 157.5 cm; Wt 70.0 kg
[2019-02-12 01:55] VITALS: BP 121/79
== END 2019-02-12 01:56 | disposition home or self-care (01) ==
LOC: ER 21:51
DX: F41.9 Anxiety disorder, unspecified (principal); F15.10 Other stimulant abuse, uncomplicated; Z88.2 Allergy status to sulfonamides; Z88.8 Allergy status to other drugs, medicaments and biological substances; Z88.5 Allergy status to narcotic agent; Z88.6 Allergy status to analgesic agent; Z88.1 Allergy status to other antibiotic agents; Z79.4 Long term (current) use of insulin; Z79.899 Other long term (current) drug therapy
CPT/HCPCS: 99284

== ENCOUNTER 2019-02-23 05:36 | Emergency (ER) | payer MEDICAID ==
[~2019-02-23] VITALS: Ht 162.6 cm; Wt 57.0 kg
[2019-02-23] MEDS ORDERED: SODIUM CHLORIDE 0.9% 1,000 ML IV ONE (06:07)
[2019-02-23 06:23] LABS: BASOPHILS % 0.6 % (0.0-2.0); EOSINOPHILS % 3.4 % (0.0-5.0); HEMATOCRIT. 26.2 % (36.0-48.0); HEMOGLOBIN. 8.7 g/dL (12.0-16.0); LYMPHOCYTES % 43.2 % (20.0-50.0); MEAN CORPUSCULAR HEMOGLOBIN 26.8 pg (28.0-32.0); MEAN PLATELET VOLUME 7.7 fl (7.4-10.4); MONOCYTES % 6.9 % (2.0-8.0); NEUTROPHILS % 45.9 % (40.0-76.0); PLATELET 361 x1000/uL (130-400); RED BLOOD CELL COUNT 3.23 mill/uL (4.2-5.4); RED CELL DISTRIBUTION WIDTH 18.8 % (11.6-14.6)
[2019-02-23 06:30] LABS: CHLORIDE 104 mEq/L (98-107); INR 0.9; PROTHROMBIN TIME 9.3 sec (9.6-11.0)
[2019-02-23 06:30] LABS: CLARITY URINE CLEAR (CLEAR); COLOR URINE YELLOW (YELLOW); KETONES URINE NEGATIVE (NEGATIVE); LEUKOCYTE ESTERASE URINE NEGATIVE (NEGATIVE); NITRITE URINE NEGATIVE (NEGATIVE); OCCULT BLOOD URINE NEGATIVE (NEGATIVE); PH URINE 6.5 (4.5-8.0); PROTEIN URINE TRACE (NEGATIVE); SPECIFIC GRAVITY URINE 1.028 (1.005-1.030); UROBILINOGEN URINE 0.2 E.U./dL (0.2-1.0)
[2019-02-23 06:34] LABS: ETHANOL BLOOD < 10 mg/dL
[2019-02-23 06:39] LABS: *BARBITURATES SCREEN URINE NEGATIVE (NEGATIVE); *BENZODIAZEPINES SCREEN URINE NEGATIVE (NEGATIVE); *COCAINE SCREEN URINE NEGATIVE (NEGATIVE)
[2019-02-23 06:40] LABS: HCG SCREEN NEGATIVE
[2019-02-23 06:40] LABS: CANNABINOID URINE SCREEN NEGATIVE (NEGATIVE); METHADONE URINE SCREEN NEGATIVE (NEGATIVE); OPIATES URINE SCREEN NEGATIVE (NEGATIVE); PHENCYCLIDINE URINE SCREEN NEGATIVE (NEGATIVE)
[2019-02-23 06:43] LABS: *AMPHETAMINES SCREEN URINE PRESUMTIVE POSITIVE (NEGATIVE)
[2019-02-23] MEDS ORDERED: HYDROCODONE/ACETAMINOPHEN 5/325MG TABLET PO ONE (06:45)
[2019-02-23] MEDS ORDERED: ONDANSETRON 4MG ODT PO ONE (06:45)
[2019-02-23 11:00] VITALS: BP 110/84
== END 2019-02-23 11:14 | disposition home or self-care (01) ==
LOC: ER 05:36
DX: M79.604 Pain in right leg (principal); R10.13 Epigastric pain; M79.89 Other specified soft tissue disorders; F15.10 Other stimulant abuse, uncomplicated; F41.9 Anxiety disorder, unspecified; F32.9 Major depressive disorder, single episode, unspecified; E11.9 Type 2 diabetes mellitus without complications; Z98.890 Other specified postprocedural states; Z79.4 Long term (current) use of insulin; Z88.2 Allergy status to sulfonamides; Z88.6 Allergy status to analgesic agent; Z88.1 Allergy status to other antibiotic agents
CPT/HCPCS: 36415; 71045; 80053; 80305; 80320; 81003; 81025; 83690; 84484; 84703; 85025; 85610; 93005; 93970; 99284; J7030; Q0162; G0480

== ENCOUNTER 2019-02-27 13:15 | Emergency (ER) | payer MEDICAID ==
[~2019-02-27] VITALS: Ht 165.1 cm; Wt 65.0 kg
[2019-02-27 19:32] VITALS: BP 112/69
[2019-02-27 19:57] LABS: CLARITY URINE CLEAR (CLEAR); COLOR URINE YELLOW (YELLOW); KETONES URINE NEGATIVE (NEGATIVE); LEUKOCYTE ESTERASE URINE TRACE (NEGATIVE); NITRITE URINE NEGATIVE (NEGATIVE); OCCULT BLOOD URINE NEGATIVE (NEGATIVE); PROTEIN URINE 1+ (NEGATIVE); UROBILINOGEN URINE 0.2 E.U./dL (0.2-1.0)
[2019-02-27 19:57] LABS: BASOPHILS % 0.9 % (0.0-2.0); EOSINOPHILS % 1.6 % (0.0-5.0); HEMATOCRIT. 27.5 % (36.0-48.0); HEMOGLOBIN. 8.8 g/dL (12.0-16.0); LYMPHOCYTES % 38.2 % (20.0-50.0); MEAN CORPUSCULAR HEMOGLOBIN 25.8 pg (28.0-32.0); MEAN CORPUSCULAR VOLUME 81.2 fL (81.0-99.0); MEAN PLATELET VOLUME 7.6 fl (7.4-10.4); NEUTROPHILS % 52.3 % (40.0-76.0); PLATELET 355 x1000/uL (130-400); RED BLOOD CELL COUNT 3.39 mill/uL (4.2-5.4)
[2019-02-27 20:02] LABS: CHLORIDE 104 mEq/L (98-107)
== END 2019-02-27 21:08 | disposition home or self-care (01) ==
LOC: ER 13:15
DX: F41.9 Anxiety disorder, unspecified (principal); F15.10 Other stimulant abuse, uncomplicated; E11.9 Type 2 diabetes mellitus without complications; F20.9 Schizophrenia, unspecified; Z98.890 Other specified postprocedural states; Z88.2 Allergy status to sulfonamides; Z88.6 Allergy status to analgesic agent; Z91.041 Radiographic dye allergy status; Z79.899 Other long term (current) drug therapy; Z79.4 Long term (current) use of insulin
CPT/HCPCS: 36415; 80053; 81003; 81025; 83690; 85025; 85610; 93005; 99284; Z7610

== ENCOUNTER 2019-02-28 15:00 | Emergency (ER) | payer MEDICAID ==
[~2019-02-28] VITALS: Ht 157.5 cm; Wt 73.0 kg
[2019-02-28 15:02] VITALS: BP 103/62
[2019-02-28] MEDS: ACETAMINOPHEN 325MG TABLET PO ONE (17:35)
== END 2019-02-28 18:52 | disposition home or self-care (01) ==
LOC: ER 15:28
DX: M25.571 Pain in right ankle and joints of right foot (principal); E11.9 Type 2 diabetes mellitus without complications; F20.9 Schizophrenia, unspecified; F41.9 Anxiety disorder, unspecified; Z86.14 Personal history of Methicillin resistant Staphylococcus aureus infection; Z98.890 Other specified postprocedural states; Z79.4 Long term (current) use of insulin; Z88.5 Allergy status to narcotic agent; Z88.2 Allergy status to sulfonamides; Z88.6 Allergy status to analgesic agent; Z88.3 Allergy status to other anti-infective agents; Z91.041 Radiographic dye allergy status
CPT/HCPCS: 73610; 81025; 82962; 99283

== ENCOUNTER 2019-03-04 04:07 | Emergency (ER) | payer MEDICAID ==
[~2019-03-04] VITALS: Ht 162.6 cm; Wt 64.0 kg
[2019-03-04 04:28] VITALS: BP 116/80
[2019-03-04] MEDS ORDERED: LORAZEPAM 1MG TABLET PO ONE (04:45)
== END 2019-03-04 06:15 | disposition home or self-care (01) ==
LOC: ER 04:07
DX: F41.9 Anxiety disorder, unspecified (principal); E11.9 Type 2 diabetes mellitus without complications; F20.9 Schizophrenia, unspecified; Z98.890 Other specified postprocedural states; F15.10 Other stimulant abuse, uncomplicated; Z79.4 Long term (current) use of insulin; Z88.2 Allergy status to sulfonamides; Z88.6 Allergy status to analgesic agent; Z88.5 Allergy status to narcotic agent; Z88.1 Allergy status to other antibiotic agents
CPT/HCPCS: 71045; 81025; 93005; 99284; Z7610

== ENCOUNTER 2019-03-04 13:23 | Emergency (ER) | payer MEDICAID ==
[~2019-03-04] VITALS: Ht 162.6 cm; Wt 49.0 kg
[2019-03-04] MEDS ORDERED: ONDANSETRON 4MG ODT PO STA (15:59)
[2019-03-04] MEDS ORDERED: ACETAMINOPHEN 325MG TABLET PO STA (15:59)
[2019-03-04 16:43] LABS: BASOPHILS % 0.8 % (0.0-2.0); EOSINOPHILS % 3.4 % (0.0-5.0); HEMATOCRIT. 27.3 % (36.0-48.0); HEMOGLOBIN. 8.9 g/dL (12.0-16.0); LYMPHOCYTES % 39.2 % (20.0-50.0); MEAN CORPUSCULAR HEMOGLOBIN 26.2 pg (28.0-32.0); MEAN CORPUSCULAR VOLUME 80.9 fL (81.0-99.0); MEAN PLATELET VOLUME 7.3 fl (7.4-10.4); NEUTROPHILS % 50.6 % (40.0-76.0); PLATELET 362 x1000/uL (130-400); RED BLOOD CELL COUNT 3.38 mill/uL (4.2-5.4); RED CELL DISTRIBUTION WIDTH 18.5 % (11.6-14.6)
[2019-03-04 16:50] LABS: CHLORIDE 104 mEq/L (98-107)
[2019-03-04 16:52] LABS: HCG SCREEN NEGATIVE
[2019-03-04 17:35] VITALS: BP 116/82
== END 2019-03-04 17:53 | disposition home or self-care (01) ==
LOC: ER 13:23
DX: R07.9 Chest pain, unspecified (principal); R06.00 Dyspnea, unspecified; E11.9 Type 2 diabetes mellitus without complications; F15.10 Other stimulant abuse, uncomplicated; Z98.890 Other specified postprocedural states; Z86.14 Personal history of Methicillin resistant Staphylococcus aureus infection; Z88.2 Allergy status to sulfonamides; Z88.8 Allergy status to other drugs, medicaments and biological substances; Z88.6 Allergy status to analgesic agent; Z88.1 Allergy status to other antibiotic agents; Z79.899 Other long term (current) drug therapy; Z91.041 Radiographic dye allergy status; Z79.4 Long term (current) use of insulin
CPT/HCPCS: 36415; 71045; 80053; 83690; 84703; 85025; 93005; 99284; Q0162

== ENCOUNTER 2019-03-29 00:29 | Emergency (ER) | payer MEDICAID ==
[~2019-03-29] VITALS: Ht 165.1 cm; Wt 64.0 kg
[2019-03-29 00:39] VITALS: BP 110/74
== END 2019-03-29 05:58 | disposition left against medical advice (07) ==
LOC: ER 00:29
DX: Z53.21 Procedure and treatment not carried out due to patient leaving prior to being seen by health care provider (principal)

== ENCOUNTER 2019-03-30 05:40 | Emergency (ER) | payer MEDICAID ==
[~2019-03-30] VITALS: Ht 167.6 cm; Wt 69.0 kg
[2019-03-30 05:43] VITALS: BP 114/63
[2019-03-30] MEDS ORDERED: LORAZEPAM 1MG TABLET PO ONE (07:35)
== END 2019-03-30 07:50 | disposition home or self-care (01) ==
LOC: ER 05:40
DX: F41.9 Anxiety disorder, unspecified (principal); F15.10 Other stimulant abuse, uncomplicated; E11.9 Type 2 diabetes mellitus without complications; I10 Essential (primary) hypertension; G40.909 Epilepsy, unspecified, not intractable, without status epilepticus; Z88.2 Allergy status to sulfonamides; Z88.6 Allergy status to analgesic agent; Z88.1 Allergy status to other antibiotic agents; Z91.041 Radiographic dye allergy status; Z79.899 Other long term (current) drug therapy
CPT/HCPCS: 99283

== ENCOUNTER 2019-04-03 10:10 | Emergency (ER) | payer MEDICAID ==
[~2019-04-03] VITALS: Ht 162.6 cm; Wt 59.0 kg
[2019-04-03] MEDS ORDERED: ALPRAZOLAM 0.5 MG TABLET PO ONE (12:30)
[2019-04-03 14:45] VITALS: BP 114/76
== END 2019-04-03 14:55 | disposition home or self-care (01) ==
LOC: ER 11:20
DX: F41.9 Anxiety disorder, unspecified (principal); F15.10 Other stimulant abuse, uncomplicated; R07.89 Other chest pain; R11.0 Nausea; E11.9 Type 2 diabetes mellitus without complications; I10 Essential (primary) hypertension; Z79.4 Long term (current) use of insulin; Z88.5 Allergy status to narcotic agent; Z88.2 Allergy status to sulfonamides; Z88.6 Allergy status to analgesic agent; Z88.1 Allergy status to other antibiotic agents
CPT/HCPCS: 81025; 99283

== ENCOUNTER 2019-04-04 15:31 | Emergency (ER) | payer MEDICAID ==
[~2019-04-04] VITALS: Ht 165.1 cm; Wt 70.0 kg
[2019-04-04 15:41] VITALS: BP 124/82
[2019-04-04] MEDS ORDERED: LORAZEPAM 0.5MG TABLET PO ONE (16:30)
== END 2019-04-04 16:44 | disposition home or self-care (01) ==
LOC: ER 15:31
DX: F15.229 Other stimulant dependence with intoxication, unspecified (principal); F41.9 Anxiety disorder, unspecified; E11.9 Type 2 diabetes mellitus without complications; I10 Essential (primary) hypertension; G40.909 Epilepsy, unspecified, not intractable, without status epilepticus; Z88.5 Allergy status to narcotic agent; Z88.2 Allergy status to sulfonamides; Z88.6 Allergy status to analgesic agent; Z88.3 Allergy status to other anti-infective agents; Z91.041 Radiographic dye allergy status; Z79.4 Long term (current) use of insulin
CPT/HCPCS: 99283

== ENCOUNTER 2019-04-04 17:04 | Emergency (ER) | payer MEDICAID ==
[~2019-04-04] VITALS: Ht 157.5 cm; Wt 69.0 kg
[2019-04-04] MEDS ORDERED: SODIUM CHLORIDE 0.9% 1,000 ML IV ONE (21:22)
[2019-04-04] MEDS ORDERED: ONDANSETRON HCL 4MG/2ML INJ IV STA (21:22)
[2019-04-04] MEDS ORDERED: FAMOTIDINE 20MG/2ML VIAL IV ONE (21:30)
[2019-04-04] MEDS ORDERED: LORAZEPAM 2MG/ML CPJ IV ONE (21:30)
[2019-04-04] MEDS ORDERED: MAGNESIUM/ALUMINUM HYDROXIDE/SIMETHICONE 30ML UDC PO ONE (21:30)
[2019-04-04 21:48] LABS: CHLORIDE 101 mEq/L (98-107)
[2019-04-04 21:50] LABS: HCG SCREEN NEGATIVE
[2019-04-04 21:52] LABS: ETHANOL BLOOD < 10 mg/dL
[2019-04-04 21:56] LABS: CREATINE KINASE 47 IU/L (26-192)
[2019-04-04 21:59] LABS: CREATINE KINASE MB FRACTION < 1.0 ng/mL (0.5-3.6)
[2019-04-04 22:00] LABS: BASOPHILS % 0.4 % (0.0-2.0); EOSINOPHILS % 0.7 % (0.0-5.0); HEMATOCRIT. 25.9 % (36.0-48.0); HEMOGLOBIN. 8.2 g/dL (12.0-16.0); LYMPHOCYTES % 17.4 % (20.0-50.0); MEAN CORPUSCULAR HEMOGLOBIN 24.7 pg (28.0-32.0); MEAN CORPUSCULAR VOLUME 78.2 fL (81.0-99.0); MEAN PLATELET VOLUME 7.8 fl (7.4-10.4); MONOCYTES % 7.1 % (2.0-8.0); NEUTROPHILS % 74.4 % (40.0-76.0); PLATELET 355 x1000/uL (130-400); RED BLOOD CELL COUNT 3.31 mill/uL (4.2-5.4); RED CELL DISTRIBUTION WIDTH 18.5 % (11.6-14.6)
[2019-04-04 22:08] LABS: *BARBITURATES SCREEN URINE NEGATIVE (NEGATIVE); *BENZODIAZEPINES SCREEN URINE NEGATIVE (NEGATIVE); *COCAINE SCREEN URINE NEGATIVE (NEGATIVE)
[2019-04-04 22:09] LABS: CANNABINOID URINE SCREEN NEGATIVE (NEGATIVE); METHADONE URINE SCREEN NEGATIVE (NEGATIVE); OPIATES URINE SCREEN NEGATIVE (NEGATIVE); PHENCYCLIDINE URINE SCREEN NEGATIVE (NEGATIVE)
[2019-04-04 22:10] LABS: *AMPHETAMINES SCREEN URINE PRESUMTIVE POSITIVE (NEGATIVE)
[2019-04-04 23:20] VITALS: BP 128/74
[2019-04-05] MEDS ORDERED: SODIUM CHLORIDE 0.9% 1,000 ML IV ONE (00:28)
[2019-04-05] MEDS ORDERED: INSULIN REGULAR (HUMULIN R) 300UNITS/3ML SUBCUT ONE (00:30)
== END 2019-04-05 01:43 | disposition left against medical advice (07) ==
LOC: ER 17:04
DX: T43.621A Poisoning by amphetamines, accidental (unintentional), initial encounter (principal); R00.0 Tachycardia, unspecified; F20.9 Schizophrenia, unspecified; F41.9 Anxiety disorder, unspecified; E11.65 Type 2 diabetes mellitus with hyperglycemia; Z79.4 Long term (current) use of insulin; Z91.14 Patient's other noncompliance with medication regimen; Z88.2 Allergy status to sulfonamides; Z88.5 Allergy status to narcotic agent; Z88.6 Allergy status to analgesic agent; Z88.3 Allergy status to other anti-infective agents; Z91.041 Radiographic dye allergy status; Y92.018 Other place in single-family (private) house as the place of occurrence of the external cause
CPT/HCPCS: 36415; 80053; 80305; 80320; 81025; 82550; 82553; 83690; 84484; 84703; 85025; 93005; 96374; 96375; 99284; J2060; J2405; J3490; J7030; Z7610; G0480

== ENCOUNTER 2019-04-06 19:10 | Emergency (ER) | payer MEDICAID ==
[~2019-04-06] VITALS: Ht 157.5 cm; Wt 59.0 kg
[2019-04-06 19:18] VITALS: BP 133/87
== END 2019-04-06 22:00 | disposition left against medical advice (07) ==
LOC: ER 19:10
DX: R10.9 Unspecified abdominal pain (principal); Z53.21 Procedure and treatment not carried out due to patient leaving prior to being seen by health care provider

== ENCOUNTER 2019-04-11 05:32 | Emergency (ER) | payer MEDICAID ==
[~2019-04-11] VITALS: Ht 157.5 cm; Wt 71.0 kg
[2019-04-11] MEDS ORDERED: IBUPROFEN 600MG TABLET PO ONE (06:45)
[2019-04-11] MEDS ORDERED: ACETAMINOPHEN 325MG TABLET PO ONE (06:45)
[2019-04-11 06:58] VITALS: BP 130/96
== END 2019-04-11 07:05 | disposition home or self-care (01) ==
LOC: ER 05:32
DX: M54.2 Cervicalgia (principal); E11.9 Type 2 diabetes mellitus without complications; F41.9 Anxiety disorder, unspecified; F20.9 Schizophrenia, unspecified; F15.10 Other stimulant abuse, uncomplicated; Z98.890 Other specified postprocedural states; Z79.4 Long term (current) use of insulin; Z88.5 Allergy status to narcotic agent; Z88.2 Allergy status to sulfonamides; Z88.3 Allergy status to other anti-infective agents; Z91.041 Radiographic dye allergy status
CPT/HCPCS: 93005; 99283

== ENCOUNTER 2019-04-11 08:34 | Emergency (ER) | payer MEDICAID ==
[~2019-04-11] VITALS: Ht 162.6 cm; Wt 64.0 kg
[2019-04-11 09:40] VITALS: BP 132/73
== END 2019-04-11 09:42 | disposition home or self-care (01) ==
LOC: ER 08:34
DX: M79.672 Pain in left foot (principal); F20.9 Schizophrenia, unspecified; E11.9 Type 2 diabetes mellitus without complications; I10 Essential (primary) hypertension; F41.9 Anxiety disorder, unspecified; F15.10 Other stimulant abuse, uncomplicated; Z98.890 Other specified postprocedural states; Z88.5 Allergy status to narcotic agent; Z88.2 Allergy status to sulfonamides; Z88.3 Allergy status to other anti-infective agents; Z91.041 Radiographic dye allergy status
CPT/HCPCS: 73620; 99283

== ENCOUNTER 2019-04-11 12:54 | Emergency (ER) | payer MEDICAID ==
[~2019-04-11] VITALS: Ht 162.6 cm; Wt 73.0 kg
[2019-04-11 17:02] VITALS: BP 122/87
== END 2019-04-11 17:05 | disposition home or self-care (01) ==
LOC: ER 12:54
DX: R05 Cough (principal); E11.9 Type 2 diabetes mellitus without complications; F41.9 Anxiety disorder, unspecified; F15.10 Other stimulant abuse, uncomplicated; F20.9 Schizophrenia, unspecified; Z88.6 Allergy status to analgesic agent; Z88.3 Allergy status to other anti-infective agents; Z88.5 Allergy status to narcotic agent; Z88.2 Allergy status to sulfonamides; Z79.4 Long term (current) use of insulin; Z98.890 Other specified postprocedural states
CPT/HCPCS: 71045; 99283

== ENCOUNTER 2019-04-11 17:14 | Emergency (ER) | payer MEDICAID ==
[~2019-04-11] VITALS: Ht 162.6 cm; Wt 73.0 kg
[2019-04-11 17:21] VITALS: BP 159/94
== END 2019-04-12 00:15 | disposition left against medical advice (07) ==
LOC: ER 17:14
DX: Z53.21 Procedure and treatment not carried out due to patient leaving prior to being seen by health care provider (principal)

== ENCOUNTER 2019-04-16 19:51 | Emergency (ER) | payer MEDICAID ==
[~2019-04-16] VITALS: Ht 162.6 cm; Wt 68.0 kg
[2019-04-17] MEDS: LORAZEPAM 0.5MG TABLET PO ONE ×2 (02:45→02:50)
[2019-04-17 03:40] VITALS: BP 124/77
== END 2019-04-17 03:48 | disposition home or self-care (01) ==
LOC: ER 20:02
DX: F41.9 Anxiety disorder, unspecified (principal); F20.9 Schizophrenia, unspecified; E11.9 Type 2 diabetes mellitus without complications; F15.10 Other stimulant abuse, uncomplicated; Z88.2 Allergy status to sulfonamides; Z88.5 Allergy status to narcotic agent; Z88.8 Allergy status to other drugs, medicaments and biological substances; Z88.1 Allergy status to other antibiotic agents; Z88.6 Allergy status to analgesic agent; Z79.4 Long term (current) use of insulin; Z79.899 Other long term (current) drug therapy
CPT/HCPCS: 99283

== ENCOUNTER 2019-04-20 16:35 | Emergency (ER) | payer MEDICAID ==
[~2019-04-20] VITALS: Ht 162.6 cm; Wt 60.0 kg
[2019-04-20] MEDS ORDERED: SODIUM CHLORIDE 0.9% 1,000 ML IV ONE (22:20)
[2019-04-20] MEDS ORDERED: ONDANSETRON HCL 4MG/2ML INJ IV STA (22:20)
[2019-04-20 23:25] LABS: BASOPHILS % 0.8 % (0.0-2.0); HEMATOCRIT. 29.5 % (36.0-48.0); HEMOGLOBIN. 9.4 g/dL (12.0-16.0); LYMPHOCYTES % 32.1 % (20.0-50.0); MEAN CORPUSCULAR HEMOGLOBIN 24.3 pg (28.0-32.0); MEAN CORPUSCULAR VOLUME 76.4 fL (81.0-99.0); MEAN PLATELET VOLUME 7.5 fl (7.4-10.4); MONOCYTES % 5.3 % (2.0-8.0); NEUTROPHILS % 59.8 % (40.0-76.0); PLATELET 556 x1000/uL (130-400); RED BLOOD CELL COUNT 3.86 mill/uL (4.2-5.4)
[2019-04-20 23:32] LABS: INR 0.9; PROTHROMBIN TIME 9.8 sec (9.6-11.0)
[2019-04-20 23:33] LABS: CHLORIDE 95 mEq/L (98-107)
[2019-04-21 00:35] LABS: CLARITY URINE CLEAR (CLEAR); COLOR URINE YELLOW (YELLOW); KETONES URINE TRACE (NEGATIVE); LEUKOCYTE ESTERASE URINE NEGATIVE (NEGATIVE); NITRITE URINE NEGATIVE (NEGATIVE); OCCULT BLOOD URINE NEGATIVE (NEGATIVE); PROTEIN URINE 2+ (NEGATIVE); SPECIFIC GRAVITY URINE 1.036 (1.005-1.030); UROBILINOGEN URINE 0.2 E.U./dL (0.2-1.0)
[2019-04-21 00:55] LABS: METHADONE URINE SCREEN NEGATIVE (NEGATIVE); OPIATES URINE SCREEN NEGATIVE (NEGATIVE)
[2019-04-21 00:57] LABS: *BARBITURATES SCREEN URINE NEGATIVE (NEGATIVE); *BENZODIAZEPINES SCREEN URINE NEGATIVE (NEGATIVE); *COCAINE SCREEN URINE NEGATIVE (NEGATIVE); CANNABINOID URINE SCREEN NEGATIVE (NEGATIVE); PHENCYCLIDINE URINE SCREEN NEGATIVE (NEGATIVE)
[2019-04-21 01:16] LABS: *AMPHETAMINES SCREEN URINE PRESUMTIVE POSITIVE (NEGATIVE)
[2019-04-21] MEDS ORDERED: LORAZEPAM 0.5MG TABLET PO ONE (01:30)
[2019-04-21] MEDS ORDERED: INSULIN REGULAR (HUMULIN R) UD 100 UNITS/ML SYR SUBCUT ONE (01:45)
[2019-04-21] MEDS ORDERED: INSULIN REGULAR (HUMULIN R) 300UNITS/3ML SUBCUT ONE (02:00)
[2019-04-21 04:00] VITALS: BP 122/87
== END 2019-04-21 05:26 | disposition home or self-care (01) ==
LOC: ER 16:35
DX: E11.65 Type 2 diabetes mellitus with hyperglycemia (principal); F41.9 Anxiety disorder, unspecified; F15.10 Other stimulant abuse, uncomplicated; Z98.890 Other specified postprocedural states; Z88.6 Allergy status to analgesic agent; Z88.3 Allergy status to other anti-infective agents; Z88.5 Allergy status to narcotic agent; Z88.2 Allergy status to sulfonamides; Z79.4 Long term (current) use of insulin
CPT/HCPCS: 36415; 71045; 80053; 80305; 81003; 81025; 82962; 83690; 83880; 84484; 85025; 85610; 93005; 96361; 96372; 96374; 99284; J1815; J2405; J7030; Z7610

== ENCOUNTER 2019-04-22 03:12 | Emergency (ER) | payer MEDICAID ==
[~2019-04-22] VITALS: Ht 162.6 cm; Wt 69.0 kg
[2019-04-22 03:13] VITALS: BP 112/74
[2019-04-22] MEDS ORDERED: LORAZEPAM 0.5MG TABLET PO ONE (07:15)
== END 2019-04-22 07:50 | disposition home or self-care (01) ==
LOC: ER 03:12
DX: F41.9 Anxiety disorder, unspecified (principal); F15.10 Other stimulant abuse, uncomplicated; F17.200 Nicotine dependence, unspecified, uncomplicated; Z88.2 Allergy status to sulfonamides; Z88.6 Allergy status to analgesic agent; Z88.1 Allergy status to other antibiotic agents; Z79.4 Long term (current) use of insulin; Z79.899 Other long term (current) drug therapy
CPT/HCPCS: 99283

== ENCOUNTER 2019-10-11 01:46 | Emergency (ER) | payer MEDICAID ==
[~2019-10-11] VITALS: Ht 165.1 cm; Wt 64.0 kg
[2019-10-11 03:00] VITALS: BP 150/85
== END 2019-10-11 05:55 | disposition home or self-care (01) ==
LOC: ER 01:46
DX: F15.10 Other stimulant abuse, uncomplicated (principal); E11.9 Type 2 diabetes mellitus without complications; Z03.818 Encounter for observation for suspected exposure to other biological agents ruled out; Z79.4 Long term (current) use of insulin; Z88.6 Allergy status to analgesic agent; Z88.3 Allergy status to other anti-infective agents; Z88.5 Allergy status to narcotic agent; Z88.2 Allergy status to sulfonamides
CPT/HCPCS: 93005; 99283; C9803; U0003

== ENCOUNTER 2019-10-24 05:39 | Emergency (ER) | payer MEDICAID ==
[~2019-10-24] VITALS: Ht 167.6 cm; Wt 78.0 kg
[2019-10-24] MEDS ORDERED: LORAZEPAM 1MG TABLET PO ONE (06:30)
[2019-10-24 06:37] VITALS: BP 115/74
== END 2019-10-24 06:38 | disposition home or self-care (01) ==
LOC: ER 05:39
DX: F41.9 Anxiety disorder, unspecified (principal); F11.10 Opioid abuse, uncomplicated; E11.9 Type 2 diabetes mellitus without complications; Z86.14 Personal history of Methicillin resistant Staphylococcus aureus infection; Z88.3 Allergy status to other anti-infective agents; Z88.5 Allergy status to narcotic agent; Z88.2 Allergy status to sulfonamides; Z88.6 Allergy status to analgesic agent; Z91.041 Radiographic dye allergy status; Z79.4 Long term (current) use of insulin
CPT/HCPCS: 81025; 93005; 99283